=== PATIENT | female | born 1935 | race Caucasian/White ===

== ENCOUNTER → 2017-02-02 | Outpatient (CLI) | payer OTHER ==
[~2017-02-02] MED LIST: ASPI-231 PO; ATOR20TA PO; CLON0.2T PO; FLUO20CA19 PO; GEM600T OR; GLIM4TAB42 PO; HYDR12.56 PO; INSUINJ37 SC; LISI40TA PO; SITA100T7 PO
[2017-02-02 08:29] LABS: DEFINITIVE VIEW TRANSMISSION; Eosinophils # (auto) 0.4 uL; Lymphocytes # (auto) 4.5 uL; SUSPECT VIEW TRANSMISSION
[2017-02-02 08:43] LABS: Basophils # (auto) 0.1 uL; Basophils % (auto) 0.7 % (0.0-2.0); Eosinophils % (auto) 3.7 % (0.0-7.0); Hematocrit 39.4 % (36.0-46.0); Hemoglobin 13.7 g/dL (12.2-16.2); Lymphocytes % (auto) 38.8 % (10.0-50.0); Mean Corpuscular Hgb Conc. 34.8 g/dL (32.0-36.0); Mean Platelet Volume 10.5 fL (7.4-10.4); Monocytes % (auto) 8.6 % (0.0-12.0); Neutrophils # (auto) 5.6 uL; Neutrophils % (auto) 48.2 % (37.0-80.0); Platelet Count (auto) 213 10^3/uL (140-450); White Blood Cell 11.7 10^3/uL (4.4-10.8)
[2017-02-02 09:09] LABS: Albumin 3.3 g/dL (3.4-5.0); BUN/Creatinine Ratio 14.9; Bilirubin, Total 0.6 mg/dL (0.2-1.0); Calcium 9.1 mg/dL (8.5-10.1); Potassium 4.7 mmol/L (3.5-5.1); Total Protein 6.9 g/dL (6.4-8.2)
[2017-02-02 09:25] LABS: Platelet Estimate Adequate
[2017-02-02 09:26] LABS: RBC Morphology Normal
== END | disposition home or self-care (01) ==
LOC: LAB 08:08
PROVIDERS: ATTEND Internal Medicine
DX: Z00.00 Encounter for general adult medical examination without abnormal findings (principal)
CPT/HCPCS: 36415; 80053; 80061; 82043; 83036; 85025

== ENCOUNTER → 2017-05-09 | Outpatient (CLI) | payer OTHER ==
[2017-05-09 14:47] LABS: BUN/Creatinine Ratio 13.4; Calcium 9.1 mg/dL (8.5-10.1); Potassium 4.5 mmol/L (3.5-5.1)
[2017-05-09 17:39] LABS: Urine Bilirubin Negative (Negative); Urine Blood Negative /uL (Negative); Urine Color Yellow (Yellow); Urine Glucose Normal (Normal); Urine Hyaline Cast MANY /lpf (0 - 2); Urine Ketone Negative (Negative); Urine Mucus FEW (None Seen); Urine Nitrite Negative (Negative); Urine RBC 1 /hpf (0 - 4); Urine Squamous Epithelial Cell MOD /hpf (<5); Urine pH 5.5 (5.0-8.0)
== END | disposition home or self-care (01) ==
LOC: LAB 13:23
PROVIDERS: ATTEND Internal Medicine
DX: E11.9 Type 2 diabetes mellitus without complications (principal)
CPT/HCPCS: 36415; 80048; 81001; 83036

== ENCOUNTER → 2017-10-30 | Outpatient (CLI) | payer OTHER ==
[2017-10-30 08:44] LABS: Basophils # (auto) 0.1 uL; Basophils % (auto) 0.8 % (0.0-2.0); Eosinophils # (auto) 0.2 uL; Eosinophils % (auto) 2.8 % (0.0-7.0); Hematocrit 38.2 % (36.0-46.0); Hemoglobin 12.8 g/dL (12.2-16.2); Lymphocytes # (auto) 2.3 uL; Lymphocytes % (auto) 27.2 % (10.0-50.0); Mean Corpuscular Hemoglobin 30.7 pg (28.0-32.0); Mean Corpuscular Hgb Conc. 33.5 g/dL (32.0-36.0); Mean Corpuscular Volume 91.8 fL (80.0-100.0); Monocytes # (auto) 0.8 uL; Neutrophils # (auto) 4.9 uL; Neutrophils % (auto) 59.2 % (37.0-80.0); Platelet Count (auto) 229 10^3/uL (140-450); Red Blood Cells 4.16 10^6/uL (4.0-5.20); White Blood Cell 8.3 10^3/uL (4.4-10.8)
[2017-10-30 09:41] LABS: Albumin 3.6 g/dL (3.4-5.0); Calcium 8.7 mg/dL (8.5-10.1); Potassium 4.6 mmol/L (3.5-5.1)
[2017-10-30 09:51] LABS: BUN/Creatinine Ratio 13.3; Bilirubin, Total 0.9 mg/dL (0.2-1.0)
[2017-10-30 09:52] LABS: Total Protein 7.4 g/dL (6.4-8.2)
== END | disposition home or self-care (01) ==
LOC: LAB 08:16
PROVIDERS: ATTEND Internal Medicine
DX: Z00.01 Encounter for general adult medical examination with abnormal findings (principal); E11.22 Type 2 diabetes mellitus with diabetic chronic kidney disease; E78.5 Hyperlipidemia, unspecified
CPT/HCPCS: 36415; 80053; 80061; 82306; 83036; 84443; 85025

== ENCOUNTER → 2017-12-04 | Outpatient (CLI) | payer OTHER | END | disposition home or self-care (01) | LOC: LAB 13:41 | PROVIDERS: ATTEND Internal Medicine | DX: Z00.01 Encounter for general adult medical examination with abnormal findings (principal); E11.22 Type 2 diabetes mellitus with diabetic chronic kidney disease; N18.3 Chronic kidney disease, stage 3 (moderate); E78.5 Hyperlipidemia, unspecified | CPT/HCPCS: 82270 ==

== ENCOUNTER → 2018-07-25 | Outpatient (CLI) | payer OTHER ==
[2018-07-25 12:49] LABS: Albumin 3.5 g/dL (3.4-5.0); BUN/Creatinine Ratio 11.4; Calcium 9.4 mg/dL (8.5-10.1); Potassium 4.5 mmol/L (3.5-5.1)
[2018-07-25 12:52] LABS: Bilirubin, Total 0.7 mg/dL (0.2-1.0); Total Protein 6.9 g/dL (6.4-8.2)
== END | disposition home or self-care (01) ==
LOC: LAB 10:46
PROVIDERS: ATTEND Internal Medicine
DX: E11.22 Type 2 diabetes mellitus with diabetic chronic kidney disease (principal); N18.3 Chronic kidney disease, stage 3 (moderate); E11.37X9 Type 2 diabetes mellitus with diabetic macular edema, resolved following treatment, unspecified eye; E78.5 Hyperlipidemia, unspecified
CPT/HCPCS: 36415; 80053; 83036

== ENCOUNTER → 2018-10-15 | Outpatient (CLI) | payer OTHER ==
[2018-10-15 12:19] LABS: Albumin 3.5 g/dL (3.4-5.0); Calcium 9.3 mg/dL (8.5-10.1); Potassium 4.5 mmol/L (3.5-5.1)
[2018-10-15 12:24] LABS: BUN/Creatinine Ratio 10.9; Bilirubin, Total 0.8 mg/dL (0.2-1.0); Total Protein 6.8 g/dL (6.4-8.2)
== END | disposition home or self-care (01) ==
LOC: LAB 11:18
PROVIDERS: ATTEND Internal Medicine
DX: E11.22 Type 2 diabetes mellitus with diabetic chronic kidney disease (principal); E78.5 Hyperlipidemia, unspecified; N18.3 Chronic kidney disease, stage 3 (moderate)
CPT/HCPCS: 36415; 80053; 83036

== ENCOUNTER → 2019-01-22 | Outpatient (CLI) | payer OTHER ==
[2019-01-22 10:45] LABS: Albumin 3.3 g/dL (3.4-5.0); BUN/Creatinine Ratio 11.1; Calcium 8.7 mg/dL (8.5-10.1); Potassium 4.5 mmol/L (3.5-5.1)
[2019-01-22 10:48] LABS: Bilirubin, Total 0.5 mg/dL (0.2-1.0); Total Protein 6.6 g/dL (6.4-8.2)
== END | disposition home or self-care (01) ==
LOC: LAB 09:18
PROVIDERS: ATTEND Internal Medicine
DX: E78.5 Hyperlipidemia, unspecified (principal); E11.9 Type 2 diabetes mellitus without complications; I10 Essential (primary) hypertension
CPT/HCPCS: 36415; 80053; 83036

== ENCOUNTER → 2019-05-27 | Outpatient (CLI) | payer OTHER ==
[2019-05-27 11:17] LABS: Potassium 4.4 mmol/L (3.5-5.1)
[2019-05-27 11:24] LABS: Albumin 3.5 g/dL (3.4-5.0); BUN/Creatinine Ratio 19.4; Bilirubin, Total 0.7 mg/dL (0.2-1.0); Calcium 9.1 mg/dL (8.5-10.1); Total Protein 6.9 g/dL (6.4-8.2)
== END | disposition home or self-care (01) ==
LOC: LAB 09:31
PROVIDERS: ATTEND Internal Medicine
DX: E11.22 Type 2 diabetes mellitus with diabetic chronic kidney disease (principal); E78.5 Hyperlipidemia, unspecified; N18.3 Chronic kidney disease, stage 3 (moderate)
CPT/HCPCS: 36415; 80053; 80061; 83036; 86803

== ENCOUNTER → 2019-09-12 | Outpatient (CLI) | payer OTHER ==
[2019-09-12 10:57] LABS: Basophils # (auto) 0.1 uL; Basophils % (auto) 1.4 % (0.0-2.0); Eosinophils # (auto) 0.2 uL; Eosinophils % (auto) 2.8 % (0.0-7.0); Hematocrit 35.4 % (36.0-46.0); Hemoglobin 11.8 g/dL (12.2-16.2); Lymphocytes # (auto) 1.4 uL; Lymphocytes % (auto) 24.2 % (10.0-50.0); Mean Corpuscular Hemoglobin 31.6 pg (28.0-32.0); Mean Corpuscular Hgb Conc. 33.3 g/dL (32.0-36.0); Mean Corpuscular Volume 95.1 fL (80.0-100.0); Monocytes # (auto) 0.6 uL; Monocytes % (auto) 10.2 % (0.0-12.0); Neutrophils # (auto) 3.5 uL; Neutrophils % (auto) 61.4 % (37.0-80.0); Platelet Count (auto) 195 10^3/uL (140-450); Red Blood Cells 3.72 10^6/uL (4.0-5.20); Red Cell Distribution Width 13.8 % (11.8-14.3); White Blood Cell 5.6 10^3/uL (4.4-10.8)
[2019-09-12 11:22] LABS: Albumin 3.2 g/dL (3.4-5.0); Calcium 9.3 mg/dL (8.5-10.1); Potassium 4.3 mmol/L (3.5-5.1)
[2019-09-12 11:27] LABS: BUN/Creatinine Ratio 17.6; Bilirubin, Total 0.6 mg/dL (0.2-1.0); Total Protein 6.7 g/dL (6.4-8.2)
== END | disposition home or self-care (01) ==
LOC: LAB 10:29
PROVIDERS: ATTEND Internal Medicine
DX: Z12.11 Encounter for screening for malignant neoplasm of colon (principal); E78.5 Hyperlipidemia, unspecified; E11.22 Type 2 diabetes mellitus with diabetic chronic kidney disease; I12.9 Hypertensive chronic kidney disease with stage 1 through stage 4 chronic kidney disease, or unspecified chronic kidney disease; N18.3 Chronic kidney disease, stage 3 (moderate)
CPT/HCPCS: 36415; 80053; 80061; 82306; 83036; 84443; 85025

== ENCOUNTER → 2020-01-30 | Outpatient (CLI) | payer OTHER ==
[2020-01-30 11:53] LABS: Albumin 3.2 g/dL (3.4-5.0); Calcium 8.8 mg/dL (8.5-10.1); Potassium 4.3 mmol/L (3.5-5.1)
[2020-01-30 12:01] LABS: Bilirubin, Total 0.9 mg/dL (0.2-1.0)
== END | disposition home or self-care (01) ==
LOC: LAB 10:57
PROVIDERS: ATTEND Internal Medicine
DX: E11.22 Type 2 diabetes mellitus with diabetic chronic kidney disease (principal); N18.9 Chronic kidney disease, unspecified; E78.5 Hyperlipidemia, unspecified
CPT/HCPCS: 36415; 80053; 80061; 83036

== ENCOUNTER 2020-10-26 17:34 | Inpatient (IN) | payer OTHER ==
[~2020-10-26] VITALS: Ht 162.6 cm; Wt 69.1 kg
[~2020-10-26 17:34] MED LIST changes: -LISI40TA PO; +LISI40TA11 PO
[2020-10-26] MEDS ORDERED: DOCUSATE SOD 100 MG CAP PO PRN (18:30)
[2020-10-26] MEDS ORDERED: DEXTROSE (50%) 50ML SYRG IV PRN (18:30)
[2020-10-26] MEDS ORDERED: MORPHINE SULF INJ 2 MG/ML SYRINGE 1ML IV PRN (18:30)
[2020-10-26] MEDS ORDERED: ONDANSETRON HCL 4 MG/2 ML VIAL IV PRN (18:30)
[2020-10-26] MEDS ORDERED: HYDROcodone-ACET 5/325MG TAB PO PRN (18:30)
[2020-10-26] MEDS ORDERED: ACETAMINOPHEN 500 MG TAB PO PRN (18:30)
[2020-10-26] MEDS ORDERED: NITROGLYCERIN 0.4 MG SL TAB SL PRN (18:30)
[2020-10-26 19:04] VITALS: BP 147/58
[2020-10-26 21:00] VITALS: BP 147/58
[2020-10-26 22:00] VITALS: BP 147/60
[2020-10-26] MEDS: InsuLIN REG 1unit/0.01ml Soln (100units/ml) SC SCH (22:02)
[2020-10-26] MEDS: ACCU-CHEK COMFORT CURVE STRIP VI SCH (22:02)
[2020-10-27] VITALS (8 sets, daily range): BP systolic 143–160; BP diastolic 46–67
[2020-10-27] MEDS: MORPHINE SULF INJ 2 MG/ML SYRINGE 1ML IV PRN ×2 (05:16→22:04)
[2020-10-27 06:42] LABS: Basophils # (auto) 0 10 ^3/uL (0-0.2); Basophils % (auto) 0.3 % (0.0-2.0); Eosinophils # (auto) 0.1 10 ^3/uL (0-0.8); Eosinophils % (auto) 0.9 % (0.0-7.0); Hematocrit 33.2 % (36.0-46.0); Hemoglobin 11.4 g/dL (12.2-16.2); Lymphocytes # (auto) 1.2 10 ^3/uL (0.4-5.4); Lymphocytes % (auto) 11.2 % (10.0-50.0); Mean Corpuscular Hgb Conc. 34.4 g/dL (32.0-36.0); Monocytes # (auto) 0.9 10 ^3/uL (0-1.3); Monocytes % (auto) 8.3 % (0.0-12.0); Neutrophils # (auto) 8.8 10 ^3/uL (1.6-8.6); Neutrophils % (auto) 79.3 % (37.0-80.0); Nucleated Red Blood Cells % 0.1 %; Platelet Count (auto) 159 10^3/uL (140-450); Red Blood Cells 3.58 10^6/uL (4.0-5.20); Red Cell Distribution Width 13.1 % (11.8-14.3); White Blood Cell 11.1 10^3/uL (4.4-10.8)
[2020-10-27] MEDS: ACCU-CHEK COMFORT CURVE STRIP VI SCH ×4 (06:44→22:04)
[2020-10-27] MEDS: InsuLIN REG 1unit/0.01ml Soln (100units/ml) SC SCH ×4 (06:47→22:05)
[2020-10-27 07:01] LABS: Potassium 4.4 mmol/L (3.5-5.1)
[2020-10-27 07:09] LABS: Albumin 2.5 g/dL (3.4-5.0); BUN/Creatinine Ratio 17.2; Bilirubin, Total 1.4 mg/dL (0.2-1.0); Calcium 8.7 mg/dL (8.5-10.1); Total Protein 6.3 g/dL (6.4-8.2)
[2020-10-27 08:27] LABS: Urine Bacteria FEW /hpf (None Seen); Urine Blood 2+ /uL (Negative); Urine Hyaline Cast FEW /lpf (0 - 2); Urine Specific Gravity 1.024 (1.001-1.035); Urine WBC 8 /hpf (0 - 5)
[2020-10-27 08:42] LABS: Cholesterol 147 mg/dL (< 200); HDL Cholesterol 59 mg/dL (40-59); LDL Cholesterol 71 mg/dL (< 100); Triglycerides 175 mg/dL (< 150)
[2020-10-27 09:17] LABS: INR 0.99 (0.9-1.15)
[2020-10-27] MEDS ORDERED: FAMOTIDINE 20 MG TAB PO SCH (10:00)
[2020-10-27] MEDS ORDERED: VANCOMYCIN HCL 1000 MG VL ONE (11:52)
[2020-10-27] MEDS ORDERED: CLINDAMYCIN 600MG IV 50 ML IV ONE (12:09)
[2020-10-27] MEDS ORDERED: MIDAZOLAM HCL 1MG/1ML-2 ML VIAL ONE (12:46)
[2020-10-27] MEDS ORDERED: fentaNYL CITRATE 100 MCG/2 ML VL ONE (12:46)
[2020-10-27] MEDS ORDERED: MEPERIDINE HCL (25 MG/ML) 1ML VIAL ONE (12:46)
[2020-10-27] MEDS ORDERED: DexAMETHasone SOD PHOS 10MG/1ML VIAL INJ ONE (13:18)
[2020-10-27] MEDS ORDERED: PROPOFOL 10 MG/ML 20 ML IV ONE (13:21)
[2020-10-27] MEDS ORDERED: EPINEPHrine HCL 1 MG/1 ML AMP ONE (13:29)
[2020-10-27] MEDS ORDERED: MORPHINE SULF INJ 2 MG/ML SYRINGE 1ML IV PRN (13:45)
[2020-10-27] MEDS ORDERED: ONDANSETRON HCL 4 MG/2 ML VIAL IV PRN (13:45)
[2020-10-27] MEDS ORDERED: ePHEDrine SULFATE 50 MG/ML AMP IV PRN (13:45)
[2020-10-27] MEDS ORDERED: ACCU-CHEK COMFORT CURVE STRIP VI ONE (13:45)
[2020-10-27] MEDS ORDERED: LABETALOL HCL 5 MG/ML 4ML SYRINGE IV PRN (13:45)
[2020-10-27] MEDS ORDERED: MIDAZOLAM HCL 1MG/1ML-2 ML VIAL IV PRN (13:45)
[2020-10-27] MEDS ORDERED: HYDROmorphone HCL 2 MG/ML VL IV PRN (13:45)
[2020-10-27] MEDS ORDERED: PHENYLEPHRINE HCL 10 MG/ML VL ONE (14:06)
[2020-10-27] MEDS: LACTATED RINGER'S 1,000 ML IV SCH (14:45)
[2020-10-27] MEDS: CLINDAMYCIN 600MG IV 50 ML IV SCH (17:12)
[2020-10-27] MEDS: KETOROLAC TROMETH 30 MG/ML 1ML VIAL IV SCH (17:13)
[2020-10-28] MEDS: KETOROLAC TROMETH 30 MG/ML 1ML VIAL IV SCH ×5 (00:03→23:48)
[2020-10-28] MEDS: CLINDAMYCIN 600MG IV 50 ML IV SCH ×2 (00:03→05:53)
[2020-10-28] MEDS: LACTATED RINGER'S 1,000 ML IV SCH (01:00)
[2020-10-28 04:45] VITALS: BP 153/63
[2020-10-28 05:57] LABS: Basophils # (auto) 0 10 ^3/uL (0-0.2); Basophils % (auto) 0.3 % (0.0-2.0); Eosinophils # (auto) 0 10 ^3/uL (0-0.8); Hemoglobin 10.4 g/dL (12.2-16.2); Lymphocytes # (auto) 0.7 10 ^3/uL (0.4-5.4); Lymphocytes % (auto) 6.2 % (10.0-50.0); Mean Corpuscular Hemoglobin 31.7 pg (28.0-32.0); Mean Corpuscular Hgb Conc. 33.7 g/dL (32.0-36.0); Monocytes % (auto) 8.1 % (0.0-12.0); Neutrophils # (auto) 10.2 10 ^3/uL (1.6-8.6); Neutrophils % (auto) 85.4 % (37.0-80.0); Platelet Count (auto) 154 10^3/uL (140-450); Red Cell Distribution Width 13.1 % (11.8-14.3)
[2020-10-28 06:25] LABS: BUN/Creatinine Ratio 23.7; Calcium 8.1 mg/dL (8.5-10.1); Potassium 4.7 mmol/L (3.5-5.1)
[2020-10-28] MEDS: InsuLIN REG 1unit/0.01ml Soln (100units/ml) SC SCH ×4 (06:28→21:28)
[2020-10-28] MEDS: ACCU-CHEK COMFORT CURVE STRIP VI SCH ×4 (06:28→21:25)
[2020-10-28 08:00] VITALS: BP 148/70
[2020-10-28] MEDS: FAMOTIDINE 20 MG TAB PO SCH (10:29)
[2020-10-28] MEDS: ENOXAPARIN SOD 30 MG/0.3 ML SYRINGE SC SCH (10:30)
[2020-10-28] MEDS ORDERED: SODIUM CHLORIDE 0.9% 1,000 ML IV ONE (11:00)
[2020-10-28] MEDS ORDERED: hydrALAZINE HCL 20 MG/ML VL IV SCH ×2 (11:45→12:00)
[2020-10-28 12:00] VITALS: BP 161/71
[2020-10-28] MEDS: hydrALAZINE HCL 20 MG/ML VL IV PRN (12:03)
[2020-10-28] MEDS ORDERED: FLUoxetine HCL 20 MG CAP PO ONE (13:45)
[2020-10-28] MEDS ORDERED: GEMFIBROZIL 600 MG TAB PO ONE (13:45)
[2020-10-28] MEDS ORDERED: LISINOPRIL 20 MG TAB PO ONE (13:45)
[2020-10-28] MEDS ORDERED: ASPirin 81 mg TAB PO ONE (13:45)
[2020-10-28] MEDS ORDERED: HCTZ 25 MG TAB PO ONE (13:45)
[2020-10-28 16:00] VITALS: BP 150/78
[2020-10-28] MEDS: ATORVASTATIN 20 MG TAB PO SCH (21:28)
[2020-10-28 22:00] VITALS: BP 166/73
[2020-10-29 05:00] VITALS: BP 167/81
[2020-10-29] MEDS: hydrALAZINE HCL 20 MG/ML VL IV PRN ×2 (06:00→18:29)
[2020-10-29] MEDS: KETOROLAC TROMETH 30 MG/ML 1ML VIAL IV SCH ×4 (06:08→23:56)
[2020-10-29 06:14] LABS: Hematocrit 30.5 % (36.0-46.0); Hemoglobin 10.5 g/dL (12.2-16.2)
[2020-10-29] MEDS: ACCU-CHEK COMFORT CURVE STRIP VI SCH ×4 (06:25→22:14)
[2020-10-29] MEDS: InsuLIN REG 1unit/0.01ml Soln (100units/ml) SC SCH ×4 (06:25→22:23)
[2020-10-29 06:31] LABS: Calcium 7.8 mg/dL (8.5-10.1); Potassium 4.2 mmol/L (3.5-5.1)
[2020-10-29 06:38] LABS: BUN/Creatinine Ratio 29.8
[2020-10-29] MEDS: GEMFIBROZIL 600 MG TAB PO SCH (08:28)
[2020-10-29] MEDS: ASPirin 81 mg TAB PO SCH (08:29)
[2020-10-29] MEDS: HCTZ 25 MG TAB PO SCH (08:31)
[2020-10-29] MEDS: FLUoxetine HCL 20 MG CAP PO SCH (08:32)
[2020-10-29] MEDS: LISINOPRIL 20 MG TAB PO SCH (08:36)
[2020-10-29] MEDS: ENOXAPARIN SOD 30 MG/0.3 ML SYRINGE SC SCH (08:39)
[2020-10-29 09:00] VITALS: BP 165/67
[2020-10-29] MEDS: MORPHINE SULF INJ 2 MG/ML SYRINGE 1ML IV PRN (10:08)
[2020-10-29 13:00] VITALS: BP 163/66
[2020-10-29 16:28] VITALS: BP 163/75
[2020-10-29 22:00] VITALS: BP 157/82
[2020-10-29] MEDS: ATORVASTATIN 20 MG TAB PO SCH (22:14)
[2020-10-30 05:00] VITALS: BP 167/76
[2020-10-30] MEDS: hydrALAZINE HCL 20 MG/ML VL IV PRN (05:35)
[2020-10-30] MEDS: KETOROLAC TROMETH 30 MG/ML 1ML VIAL IV SCH ×2 (05:41→11:50)
[2020-10-30] MEDS: ACCU-CHEK COMFORT CURVE STRIP VI SCH ×2 (06:26→11:48)
[2020-10-30] MEDS: InsuLIN REG 1unit/0.01ml Soln (100units/ml) SC SCH ×2 (06:28→11:48)
[2020-10-30 06:51] LABS: Hematocrit 32.8 % (36.0-46.0)
[2020-10-30 07:12] LABS: BUN/Creatinine Ratio 31.8; Calcium 8.6 mg/dL (8.5-10.1)
[2020-10-30 09:00] VITALS: BP 161/84
[2020-10-30] MEDS: FAMOTIDINE 20 MG TAB PO SCH (09:42)
[2020-10-30] MEDS: GEMFIBROZIL 600 MG TAB PO SCH (09:42)
[2020-10-30] MEDS: LISINOPRIL 20 MG TAB PO SCH (09:42)
[2020-10-30] MEDS: FLUoxetine HCL 20 MG CAP PO SCH (09:42)
[2020-10-30] MEDS: HCTZ 25 MG TAB PO SCH (09:43)
[2020-10-30] MEDS: ASPirin 81 mg TAB PO SCH (09:43)
[2020-10-30] MEDS: ENOXAPARIN SOD 30 MG/0.3 ML SYRINGE SC SCH (09:43)
[2020-10-30] MEDS ORDERED: CHOLECALCIFEROL (VITD3) 2,000 UNIT CAP/TAB PO SCH (10:00)
[2020-10-30 13:00] VITALS: BP 114/60
[2020-10-30 13:08] VITALS: BP 114/60
== END 2020-10-30 15:13 | disposition home health service (06) | DRG 521 ==
LOC: TELE-CENTR 17:34
PROVIDERS: ADMIT Internal Medicine; ATTEND Internal Medicine
PROC: 0SRS0J9 Replacement of Left Hip Joint, Femoral Surface with Synthetic Substitute, Cemented, Open Approach (ICD-10-PCS; principal; 2020-10-27 12:50)
DX: S72.092A Other fracture of head and neck of left femur, initial encounter for closed fracture (principal); N17.0 Acute kidney failure with tubular necrosis; E78.5 Hyperlipidemia, unspecified; I10 Essential (primary) hypertension; R01.1 Cardiac murmur, unspecified; Z20.822 Contact with and (suspected) exposure to COVID-19; E11.51 Type 2 diabetes mellitus with diabetic peripheral angiopathy without gangrene; E55.9 Vitamin D deficiency, unspecified; W01.0XXA Fall on same level from slipping, tripping and stumbling without subsequent striking against object, initial encounter; Z79.4 Long term (current) use of insulin; Z79.899 Other long term (current) drug therapy; Z87.891 Personal history of nicotine dependence; Y93.89 Activity, other specified; Y92.89 Other specified places as the place of occurrence of the external cause; Y99.8 Other external cause status
CPT/HCPCS: 36415; 71045; 72170; 80048; 80053; 80061; 81001; 82043; 82306; 82962; 83036; 84443; 85014; 85018; 85025; 85610; 85730; 86850; 86900; 86901; 87426; 93306; 97110; 97116; 97530; A4565; G0378; J0171; J1100; J1815; J1885; J2250; J2704; J3490

== ENCOUNTER 2020-10-31 16:20 | Inpatient (IN) | payer OTHER ==
[~2020-10-31] VITALS: Ht 162.6 cm; Wt 70.0 kg
[2020-10-31 17:21] LABS: Basophils # (auto) 0.1 10 ^3/uL (0-0.2); Basophils % (auto) 0.5 % (0.0-2.0); Eosinophils # (auto) 0.3 10 ^3/uL (0-0.8); Eosinophils % (auto) 3.1 % (0.0-7.0); Hematocrit 31.3 % (36.0-46.0); Hemoglobin 10.7 g/dL (12.2-16.2); Lymphocytes # (auto) 1.1 10 ^3/uL (0.4-5.4); Lymphocytes % (auto) 10.6 % (10.0-50.0); Mean Corpuscular Hemoglobin 31.7 pg (28.0-32.0); Mean Corpuscular Hgb Conc. 34.1 g/dL (32.0-36.0); Mean Corpuscular Volume 93.2 fL (80.0-100.0); Monocytes # (auto) 1.2 10 ^3/uL (0-1.3); Monocytes % (auto) 11.5 % (0.0-12.0); Neutrophils # (auto) 7.5 10 ^3/uL (1.6-8.6); Neutrophils % (auto) 74.3 % (37.0-80.0); Platelet Count (auto) 235 10^3/uL (140-450); Red Blood Cells 3.36 10^6/uL (4.0-5.20); Red Cell Distribution Width 13.4 % (11.8-14.3); White Blood Cell 10.1 10^3/uL (4.4-10.8)
[2020-10-31 17:33] LABS: BUN/Creatinine Ratio 23.6; Calcium 8.8 mg/dL (8.5-10.1); Potassium 4.1 mmol/L (3.5-5.1)
[2020-10-31 17:38] LABS: Bilirubin, Total 0.9 mg/dL (0.2-1.0); Total Protein 6.2 g/dL (6.4-8.2)
[2020-10-31 17:50] LABS: INR 0.97 (0.9-1.15); Partial Thromboplastin Time 26.8 sec (23.0-31.2)
[2020-10-31] MEDS ORDERED: SODIUM CHLORIDE 0.9% 1,000 ML IV ONE (18:45)
[2020-10-31] MEDS ORDERED: CIPROFLOXACIN 400MG/200ML 200 ML IV ONE (18:45)
[2020-10-31] MEDS ORDERED: metroNIDAZOLE 500MG/100ML 100 ML IV ONE (18:45)
[2020-10-31] MEDS ORDERED: DOCUSATE SOD 100 MG CAP PO PRN (22:30)
[2020-10-31] MEDS ORDERED: DEXTROSE (50%) 50ML SYRG IV PRN (22:30)
[2020-10-31] MEDS ORDERED: ACETAMINOPHEN 325 MG TAB PO PRN (22:30)
[2020-10-31] MEDS ORDERED: NITROGLYCERIN 0.4 MG SL TAB SL PRN (22:30)
[2020-10-31] MEDS ORDERED: ONDANSETRON HCL 4 MG/2 ML VIAL IV PRN (22:30)
[2020-10-31] MEDS ORDERED: MORPHINE SULF INJ 2 MG/ML SYRINGE 1ML IV PRN (22:30)
[2020-10-31] MEDS: SODIUM CHLORIDE 0.9% 1,000 ML IV SCH (22:45)
[2020-10-31] MEDS: HYDROcodone-ACET 5/325MG TAB PO PRN (23:38)
[2020-11-01 05:00] LABS: Basophils # (auto) 0.1 10 ^3/uL (0-0.2); Basophils % (auto) 0.7 % (0.0-2.0); Eosinophils # (auto) 0.3 10 ^3/uL (0-0.8); Eosinophils % (auto) 3.5 % (0.0-7.0); Hematocrit 28.2 % (36.0-46.0); Hemoglobin 9.6 g/dL (12.2-16.2); Lymphocytes # (auto) 1.3 10 ^3/uL (0.4-5.4); Lymphocytes % (auto) 14.6 % (10.0-50.0); Mean Corpuscular Hemoglobin 31.6 pg (28.0-32.0); Mean Corpuscular Volume 92.8 fL (80.0-100.0); Monocytes # (auto) 1.1 10 ^3/uL (0-1.3); Monocytes % (auto) 11.6 % (0.0-12.0); Neutrophils # (auto) 6.4 10 ^3/uL (1.6-8.6); Neutrophils % (auto) 69.6 % (37.0-80.0); Platelet Count (auto) 212 10^3/uL (140-450); Red Blood Cells 3.04 10^6/uL (4.0-5.20); Red Cell Distribution Width 13.5 % (11.8-14.3); White Blood Cell 9.2 10^3/uL (4.4-10.8)
[2020-11-01 05:15] LABS: Albumin 1.8 g/dL (3.4-5.0); Calcium 8.1 mg/dL (8.5-10.1); Potassium 3.9 mmol/L (3.5-5.1)
[2020-11-01 05:22] LABS: BUN/Creatinine Ratio 26.2; Bilirubin, Total 0.7 mg/dL (0.2-1.0); Total Protein 5.6 g/dL (6.4-8.2)
[2020-11-01 06:00] VITALS: BP 153/66
[2020-11-01] MEDS ORDERED: metroNIDAZOLE 500MG/100ML 100 ML IV SCH (06:00)
[2020-11-01] MEDS: ACCU-CHEK COMFORT CURVE STRIP VI SCH ×4 (06:58→21:52)
[2020-11-01] MEDS: InsuLIN REG 1unit/0.01ml Soln (100units/ml) SC SCH ×4 (07:11→21:52)
[2020-11-01] MEDS: SODIUM CHLORIDE 0.9% 1,000 ML IV SCH (07:56)
[2020-11-01 09:02] VITALS: BP 153/66
[2020-11-01] MEDS ORDERED: HEPARIN SODIUM (PORCINE) 5000 UNITS/ML 1ML VIAL SC SCH (10:00)
[2020-11-01] MEDS ORDERED: FAMOTIDINE 20 MG TAB PO SCH (10:00)
[2020-11-01] MEDS ORDERED: POLYETHYLENE GLYCOL 17 GM PWDR PO ONE ×2 (10:30)
[2020-11-01] MEDS ORDERED: ENOXAPARIN SOD 40 MG/0.4 ML SYRINGE SC SCH (10:30)
[2020-11-01] MEDS: DOCUSATE SOD 100 MG CAP PO SCH ×2 (10:40→21:14)
[2020-11-01] MEDS: MULTIPLE VITAMIN TAB PO SCH (10:40)
[2020-11-01] MEDS: FLUoxetine HCL 20 MG CAP PO SCH (10:40)
[2020-11-01] MEDS: ZINC SULFATE 220mg CAP or TAB PO SCH (10:40)
[2020-11-01] MEDS: ASCORBIC ACID 500 MG TAB PO SCH ×2 (10:41→21:14)
[2020-11-01] MEDS ORDERED: PANTOPRAZOLE 40 MG TAB PO ONE (12:30)
[2020-11-01] MEDS ORDERED: ENOXAPARIN SOD 60 MG/0.6 ML SYRINGE SC ONE (12:30)
[2020-11-01] MEDS ORDERED: BISACODYL 5 MG EC TAB PO ONE (12:30)
[2020-11-01 13:07] VITALS: BP 174/61
[2020-11-01] MEDS: hydrALAZINE HCL 20 MG/ML VL IV PRN (13:29)
[2020-11-01] MEDS: HYDROcodone-ACET 5/325MG TAB PO PRN ×2 (14:22→21:54)
[2020-11-01 17:15] VITALS: BP 109/58
[2020-11-01 22:00] VITALS: BP 148/60
[2020-11-01] MEDS ORDERED: ENOXAPARIN SOD 60 MG/0.6 ML SYRINGE SC SCH (22:00)
[2020-11-02 05:00] VITALS: BP 136/62
[2020-11-02 05:52] VITALS: BP 136/62
[2020-11-02 06:42] LABS: Basophils # (auto) 0.1 10 ^3/uL (0-0.2); Basophils % (auto) 0.8 % (0.0-2.0); Eosinophils # (auto) 0.3 10 ^3/uL (0-0.8); Eosinophils % (auto) 3.9 % (0.0-7.0); Hematocrit 31.3 % (36.0-46.0); Hemoglobin 10.4 g/dL (12.2-16.2); Lymphocytes # (auto) 1.8 10 ^3/uL (0.4-5.4); Lymphocytes % (auto) 22.5 % (10.0-50.0); Mean Corpuscular Hemoglobin 31.8 pg (28.0-32.0); Mean Corpuscular Hgb Conc. 33.3 g/dL (32.0-36.0); Mean Corpuscular Volume 95.6 fL (80.0-100.0); Monocytes # (auto) 1.1 10 ^3/uL (0-1.3); Monocytes % (auto) 13.7 % (0.0-12.0); Neutrophils # (auto) 4.6 10 ^3/uL (1.6-8.6); Neutrophils % (auto) 59.1 % (37.0-80.0); Platelet Count (auto) 270 10^3/uL (140-450); Red Blood Cells 3.28 10^6/uL (4.0-5.20); Red Cell Distribution Width 13.5 % (11.8-14.3); White Blood Cell 7.9 10^3/uL (4.4-10.8)
[2020-11-02 07:01] LABS: Calcium 8.1 mg/dL (8.5-10.1); Potassium 4.3 mmol/L (3.5-5.1)
[2020-11-02 07:04] LABS: BUN/Creatinine Ratio 22.5
[2020-11-02] MEDS: ACCU-CHEK COMFORT CURVE STRIP VI SCH ×4 (07:06→20:33)
[2020-11-02] MEDS: HYDROcodone-ACET 5/325MG TAB PO PRN ×3 (07:13→15:57)
[2020-11-02] MEDS: InsuLIN REG 1unit/0.01ml Soln (100units/ml) SC SCH ×4 (07:15→20:42)
[2020-11-02 09:00] VITALS: BP 124/68
[2020-11-02] MEDS: ZINC SULFATE 220mg CAP or TAB PO SCH (09:36)
[2020-11-02] MEDS: DOCUSATE SOD 100 MG CAP PO SCH ×2 (09:36→20:32)
[2020-11-02] MEDS: MULTIPLE VITAMIN TAB PO SCH (09:37)
[2020-11-02] MEDS: POLYETHYLENE GLYCOL 17 GM PWDR PO SCH (09:37)
[2020-11-02] MEDS: PANTOPRAZOLE 40 MG TAB PO SCH (09:37)
[2020-11-02] MEDS: ASCORBIC ACID 500 MG TAB PO SCH ×2 (09:37→20:32)
[2020-11-02] MEDS: FLUoxetine HCL 20 MG CAP PO SCH (09:37)
[2020-11-02] MEDS: ENOXAPARIN SOD 60 MG/0.6 ML SYRINGE SC SCH (09:38)
[2020-11-02] MEDS: hydrALAZINE HCL 20 MG/ML VL IV PRN (12:03)
[2020-11-02 12:51] VITALS: BP 190/80
[2020-11-02 17:00] VITALS: BP 142/48
[2020-11-02] MEDS: ATORVASTATIN 20 MG TAB PO SCH (20:32)
[2020-11-02] MEDS: traMADol HCL 50 MG TAB PO PRN (20:33)
[2020-11-02 22:25] VITALS: BP 140/54
[2020-11-03 04:32] VITALS: BP 162/66
[2020-11-03] MEDS: hydrALAZINE HCL 20 MG/ML VL IV PRN (06:18)
[2020-11-03] MEDS: traMADol HCL 50 MG TAB PO PRN ×2 (06:18→16:15)
[2020-11-03] MEDS: ACCU-CHEK COMFORT CURVE STRIP VI SCH ×4 (07:18→21:55)
[2020-11-03] MEDS: InsuLIN REG 1unit/0.01ml Soln (100units/ml) SC SCH ×4 (07:18→21:57)
[2020-11-03 09:00] VITALS: BP 147/54
[2020-11-03] MEDS: POLYETHYLENE GLYCOL 17 GM PWDR PO SCH (09:35)
[2020-11-03] MEDS: ZINC SULFATE 220mg CAP or TAB PO SCH (09:36)
[2020-11-03] MEDS: DOCUSATE SOD 100 MG CAP PO SCH ×2 (09:36→21:15)
[2020-11-03] MEDS: ENOXAPARIN SOD 60 MG/0.6 ML SYRINGE SC SCH (09:37)
[2020-11-03] MEDS: ASCORBIC ACID 500 MG TAB PO SCH ×2 (09:37→21:16)
[2020-11-03] MEDS: HYDROcodone-ACET 5/325MG TAB PO PRN ×2 (09:37→21:18)
[2020-11-03] MEDS: FLUoxetine HCL 20 MG CAP PO SCH (09:37)
[2020-11-03] MEDS: MULTIPLE VITAMIN TAB PO SCH (09:37)
[2020-11-03] MEDS: PANTOPRAZOLE 40 MG TAB PO SCH (09:37)
[2020-11-03 13:00] VITALS: BP 134/56
[2020-11-03 16:31] VITALS: BP 160/93
[2020-11-03] MEDS: ATORVASTATIN 20 MG TAB PO SCH (21:15)
[2020-11-03 22:00] VITALS: BP 157/61
[2020-11-04 05:00] VITALS: BP 163/69
[2020-11-04] MEDS: ACCU-CHEK COMFORT CURVE STRIP VI SCH ×3 (06:33→17:00)
[2020-11-04] MEDS: InsuLIN REG 1unit/0.01ml Soln (100units/ml) SC SCH ×3 (06:35→17:00)
[2020-11-04] MEDS: HYDROcodone-ACET 5/325MG TAB PO PRN ×2 (06:54→12:05)
[2020-11-04 08:47] VITALS: BP 155/82
[2020-11-04] MEDS: POLYETHYLENE GLYCOL 17 GM PWDR PO SCH (10:00)
[2020-11-04] MEDS: MULTIPLE VITAMIN TAB PO SCH (10:10)
[2020-11-04] MEDS: DOCUSATE SOD 100 MG CAP PO SCH (10:10)
[2020-11-04] MEDS: ZINC SULFATE 220mg CAP or TAB PO SCH (10:10)
[2020-11-04] MEDS: ENOXAPARIN SOD 60 MG/0.6 ML SYRINGE SC SCH (10:11)
[2020-11-04] MEDS: PANTOPRAZOLE 40 MG TAB PO SCH (10:11)
[2020-11-04] MEDS: ASCORBIC ACID 500 MG TAB PO SCH (10:11)
[2020-11-04] MEDS: FLUoxetine HCL 20 MG CAP PO SCH (10:11)
[2020-11-04] MEDS: hydrALAZINE HCL 20 MG/ML VL IV PRN (11:46)
[2020-11-04 13:00] VITALS: BP 174/64
== END 2020-11-04 17:26 | DRG 280 ==
LOC: ER 16:20 → EDBD 16:20 → TELE 22:32 → TELE-WESTW 11-01 05:32
PROVIDERS: ADMIT Nurse Practitioner Family; ATTEND Internal Medicine
DX: I82.412 Acute embolism and thrombosis of left femoral vein (principal); I21.A1 Myocardial infarction type 2; I26.99 Other pulmonary embolism without acute cor pulmonale; K56.7 Ileus, unspecified; I13.0 Hypertensive heart and chronic kidney disease with heart failure and stage 1 through stage 4 chronic kidney disease, or unspecified chronic kidney disease; K29.80 Duodenitis without bleeding; K59.00 Constipation, unspecified; N18.2 Chronic kidney disease, stage 2 (mild); I70.0 Atherosclerosis of aorta; Z20.822 Contact with and (suspected) exposure to COVID-19; Z88.0 Allergy status to penicillin; E11.22 Type 2 diabetes mellitus with diabetic chronic kidney disease; E11.51 Type 2 diabetes mellitus with diabetic peripheral angiopathy without gangrene; E78.5 Hyperlipidemia, unspecified; I50.9 Heart failure, unspecified; Z79.4 Long term (current) use of insulin; Z82.3 Family history of stroke; Z96.642 Presence of left artificial hip joint; F32.9 Major depressive disorder, single episode, unspecified; K21.9 Gastro-esophageal reflux disease without esophagitis; F41.9 Anxiety disorder, unspecified
CPT/HCPCS: 36415; 74176; 78582; 80048; 80053; 80061; 82962; 83735; 83880; 84443; 84484; 85025; 85379; 85610; 85730; 87081; 87426; 93005; 93970; 96365; 96368; 97163; G0378; J1815; J3490

== ENCOUNTER 2020-12-09 15:06 | Inpatient (IN) | payer OTHER ==
[~2020-12-09] VITALS: Ht 162.6 cm; Wt 61.2 kg
[~2020-12-09 15:06] MED LIST changes: -ASPI-231 PO; +ASPI1TAB20 PO
[2020-12-09 16:11] LABS: Basophils # (auto) 0 10 ^3/uL (0-0.2); Basophils % (auto) 0.3 % (0.0-2.0); Eosinophils # (auto) 0.3 10 ^3/uL (0-0.8); Eosinophils % (auto) 3.1 % (0.0-7.0); Hemoglobin 11.2 g/dL (12.2-16.2); Lymphocytes # (auto) 1.4 10 ^3/uL (0.4-5.4); Lymphocytes % (auto) 16.5 % (10.0-50.0); Mean Corpuscular Hemoglobin 30.1 pg (28.0-32.0); Mean Corpuscular Hgb Conc. 33.8 g/dL (32.0-36.0); Mean Corpuscular Volume 89.1 fL (80.0-100.0); Monocytes # (auto) 0.7 10 ^3/uL (0-1.3); Neutrophils # (auto) 6.2 10 ^3/uL (1.6-8.6); Neutrophils % (auto) 72.1 % (37.0-80.0); Nucleated Red Blood Cells % 0.2 %; Red Blood Cells 3.71 10^6/uL (4.0-5.20); Red Cell Distribution Width 14.6 % (11.8-14.3); White Blood Cell 8.6 10^3/uL (4.4-10.8)
[2020-12-09 16:23] LABS: Calcium 8.2 mg/dL (8.5-10.1)
[2020-12-09 16:26] LABS: Lactic Acid w/Reflex 2.3 mmol/L (0.4-2.0)
[2020-12-09 16:27] LABS: BUN/Creatinine Ratio 11.9; Bilirubin, Total 0.6 mg/dL (0.2-1.0); Total Protein 6.2 g/dL (6.4-8.2)
[2020-12-09 16:39] LABS: Potassium 2.5 mmol/L (3.5-5.1)
[2020-12-09] MEDS ORDERED: POTASSIUM CHL 20 Meq TABLET PO ONE (16:45)
[2020-12-09] MEDS ORDERED: SODIUM CHLORIDE 0.9% 1,000 ML IV ONE (17:00)
[2020-12-09 19:25] LABS: Urine Bacteria NONE SEEN /hpf (None Seen); Urine Blood Negative /uL (Negative); Urine Specific Gravity 1.013 (1.001-1.035); Urine WBC 1 /hpf (0 - 5)
[2020-12-09] MEDS ORDERED: NITROGLYCERIN 0.4 MG SL TAB SL PRN (19:30)
[2020-12-09] MEDS ORDERED: DEXTROSE (50%) 50ML SYRG IV PRN (19:30)
[2020-12-09] MEDS ORDERED: POTASSIUM CHLORIDE 40 MEQ, LIDOCAINE 1% (LOCAL ANESTH.) 4 ML in SODIUM CHL 0.9% 250 ML IV ONE (19:30)
[2020-12-09] MEDS ORDERED: MORPHINE SULFATE INJECTION 2 MG/ML SYRG IV PRN (19:30)
[2020-12-09] MEDS ORDERED: cloNIDine HCL 0.1 MG TAB ONE (21:30)
[2020-12-09] MEDS ORDERED: cloNIDine HCL 0.1 MG TAB PO PRN (21:30)
[2020-12-09 21:45] VITALS: BP 150/73
[2020-12-09 22:00] VITALS: BP 150/73
[2020-12-10] MEDS: ACCU-CHEK COMFORT CURVE STRIP VI SCH ×4 (00:33→17:04)
[2020-12-10] MEDS: InsuLIN REG 1unit/0.01ml Soln (100units/ml) SC SCH ×4 (00:49→17:05)
[2020-12-10] MEDS: SOD CHL 0.9%/ KCL 20MEQ 1,000 ML IV SCH ×3 (00:55→15:30)
[2020-12-10 05:00] VITALS: BP 130/55
[2020-12-10] MEDS ORDERED: HYDROCORTONE 1% TOPICAL CREAM 30 GM TUBE TOP ONE (07:15)
[2020-12-10] MEDS ORDERED: DOCUSATE SOD 100 MG CAP PO PRN (07:15)
[2020-12-10] MEDS ORDERED: LORazepam 0.5 MG TAB PO PRN (07:15)
[2020-12-10] MEDS ORDERED: hydrALAZINE HCL 20 MG/ML VL IV PRN (07:15)
[2020-12-10] MEDS ORDERED: ONDANSETRON HCL 4 MG/2 ML VIAL IV PRN (07:15)
[2020-12-10] MEDS ORDERED: ACETAMINOPHEN 325 MG TAB PO PRN (07:15)
[2020-12-10] MEDS ORDERED: MORPHINE SULFATE INJECTION 2 MG/ML SYRG IV PRN ×2 (07:15)
[2020-12-10] MEDS ORDERED: ALUM & MAG HYDROX-SIMETH LIQ(MAALOX) 30 ML PO PRN (07:15)
[2020-12-10] MEDS ORDERED: DEXTROSE (50%) 50ML SYRG IV PRN (07:15)
[2020-12-10] MEDS ORDERED: HYDROcodone-ACET 5/325MG TAB PO PRN (07:15)
[2020-12-10] MEDS ORDERED: NITROGLYCERIN 0.4 MG SL TAB SL PRN (07:15)
[2020-12-10] MEDS ORDERED: CLOTRIMAZOLE 1 % CREAM 15GM TOP ONE (07:15)
[2020-12-10 08:41] LABS: Basophils # (auto) 0.1 10 ^3/uL (0-0.2); Eosinophils # (auto) 0.3 10 ^3/uL (0-0.8); Eosinophils % (auto) 4.1 % (0.0-7.0); Hematocrit 26.8 % (36.0-46.0); Lymphocytes # (auto) 1.1 10 ^3/uL (0.4-5.4); Lymphocytes % (auto) 15.5 % (10.0-50.0); Mean Corpuscular Hemoglobin 30.6 pg (28.0-32.0); Mean Corpuscular Hgb Conc. 33.6 g/dL (32.0-36.0); Mean Corpuscular Volume 90.9 fL (80.0-100.0); Monocytes # (auto) 0.8 10 ^3/uL (0-1.3); Monocytes % (auto) 11.5 % (0.0-12.0); Neutrophils % (auto) 67.9 % (37.0-80.0); Red Blood Cells 2.95 10^6/uL (4.0-5.20); White Blood Cell 7.3 10^3/uL (4.4-10.8)
[2020-12-10 08:55] LABS: INR 1.08 (0.9-1.15)
[2020-12-10 09:00] VITALS: BP 133/54
[2020-12-10 09:04] LABS: Albumin 1.6 g/dL (3.4-5.0); Calcium 7.7 mg/dL (8.5-10.1); Magnesium 1.9 mg/dL (1.6-2.6); Potassium 3.1 mmol/L (3.5-5.1)
[2020-12-10 09:09] LABS: BUN/Creatinine Ratio 11.1; Bilirubin, Total 0.4 mg/dL (0.2-1.0); Phosphorus 2.7 mg/dL (2.5-4.90); Total Protein 4.8 g/dL (6.4-8.2)
[2020-12-10] MEDS ORDERED: GEMFIBROZIL 600 MG TAB PO SCH (10:00)
[2020-12-10] MEDS ORDERED: APIXABAN 2.5 MG TAB PO SCH (10:00)
[2020-12-10] MEDS ORDERED: ATORVASTATIN 20 MG TAB PO SCH ×2 (10:00→22:00)
[2020-12-10] MEDS ORDERED: MAGNESIUM OXIDE 400 MG TAB PO ONE (10:45)
[2020-12-10] MEDS ORDERED: POTASSIUM CHL 20 Meq TABLET PO ONE (10:45)
[2020-12-10 12:34] VITALS: BP 141/63
[2020-12-10 13:00] VITALS: BP 141/63
[2020-12-10 17:00] VITALS: BP 151/63
[2020-12-10] MEDS ORDERED: CLOTRIMAZOLE 1 % CREAM 15GM TOP SCH (22:00)
[2020-12-10] MEDS ORDERED: InsuLIN REG 1unit/0.01ml Soln (100units/ml) SC SCH (22:00)
[2020-12-10] MEDS ORDERED: ASPirin-EC 81 mg tab PO SCH (22:00)
[2020-12-10] MEDS ORDERED: HYDROCORTONE 1% TOPICAL CREAM 30 GM TUBE TOP SCH (22:00)
== END 2020-12-10 18:48 | disposition home health service (06) | DRG 606 ==
LOC: ER 15:06 → TELE 19:24 → TELE-EAST 21:45
PROVIDERS: ADMIT Hospitalist; ATTEND Internal Medicine
DX: L24.9 Irritant contact dermatitis, unspecified cause (principal); E43 Unspecified severe protein-calorie malnutrition; L89.152 Pressure ulcer of sacral region, stage 2; D64.9 Anemia, unspecified; E87.6 Hypokalemia; E11.9 Type 2 diabetes mellitus without complications; L22 Diaper dermatitis; Z87.81 Personal history of (healed) traumatic fracture; Z96.642 Presence of left artificial hip joint; I11.0 Hypertensive heart disease with heart failure; I50.9 Heart failure, unspecified; F32.9 Major depressive disorder, single episode, unspecified; E78.5 Hyperlipidemia, unspecified; Z20.822 Contact with and (suspected) exposure to COVID-19; Z79.84 Long term (current) use of oral hypoglycemic drugs; Z79.899 Other long term (current) drug therapy; Z82.3 Family history of stroke; F41.9 Anxiety disorder, unspecified; K21.9 Gastro-esophageal reflux disease without esophagitis; Z88.0 Allergy status to penicillin
CPT/HCPCS: 36415; 71045; 80053; 80061; 81001; 82962; 83036; 83605; 83735; 84100; 84484; 85025; 85610; 87040; 87426; 93005; 96361; 96365; G0378; J1815; J2001

== ENCOUNTER → 2020-12-14 | Outpatient (CLI) | payer OTHER ==
[~2020-12-14] MED LIST changes: +ASPI-231 PO; -ASPI1TAB20 PO
[2020-12-14 13:31] LABS: BUN/Creatinine Ratio 7.9; Calcium 8.9 mg/dL (8.5-10.1); Potassium 3.4 mmol/L (3.5-5.1)
== END | disposition home or self-care (01) ==
LOC: LAB 12:10
PROVIDERS: ATTEND Internal Medicine
DX: I10 Essential (primary) hypertension (principal)
CPT/HCPCS: 36415; 80048

== ENCOUNTER → 2020-12-26 | Outpatient (CLI) | payer OTHER ==
[2020-12-26 10:29] LABS: Basophils # (auto) 0.1 10 ^3/uL (0-0.2); Basophils % (auto) 1.2 % (0.0-2.0); Eosinophils # (auto) 0.2 10 ^3/uL (0-0.8); Eosinophils % (auto) 2.1 % (0.0-7.0); Hematocrit 36.5 % (36.0-46.0); Hemoglobin 11.9 g/dL (12.2-16.2); Lymphocytes # (auto) 1.9 10 ^3/uL (0.4-5.4); Lymphocytes % (auto) 26.5 % (10.0-50.0); Mean Corpuscular Hemoglobin 29.8 pg (28.0-32.0); Mean Corpuscular Hgb Conc. 32.6 g/dL (32.0-36.0); Mean Corpuscular Volume 91.2 fL (80.0-100.0); Monocytes # (auto) 0.6 10 ^3/uL (0-1.3); Monocytes % (auto) 8.4 % (0.0-12.0); Neutrophils # (auto) 4.5 10 ^3/uL (1.6-8.6); Neutrophils % (auto) 61.8 % (37.0-80.0); Nucleated Red Blood Cells % 0.1 %; Platelet Count (auto) 269 10^3/uL (140-450); Red Cell Distribution Width 15.7 % (11.8-14.3); White Blood Cell 7.4 10^3/uL (4.4-10.8)
[2020-12-26 11:29] LABS: Albumin 2.3 g/dL (3.4-5.0); Calcium 8.6 mg/dL (8.5-10.1)
[2020-12-26 11:33] LABS: BUN/Creatinine Ratio 11.6; Bilirubin, Total 0.6 mg/dL (0.2-1.0); Total Protein 6.2 g/dL (6.4-8.2)
== END | disposition home or self-care (01) ==
LOC: LAB 10:13
PROVIDERS: ATTEND Internal Medicine
DX: E11.69 Type 2 diabetes mellitus with other specified complication (principal); E78.5 Hyperlipidemia, unspecified; I10 Essential (primary) hypertension
CPT/HCPCS: 36415; 80053; 83036; 85025

== ENCOUNTER → 2021-02-06 | Outpatient (CLI) | payer OTHER ==
[2021-02-06 10:35] LABS: Albumin 2.5 g/dL (3.4-5.0); Calcium 8.5 mg/dL (8.5-10.1); Potassium 3.8 mmol/L (3.5-5.1)
[2021-02-06 10:38] LABS: BUN/Creatinine Ratio 10.6; Bilirubin, Total 0.6 mg/dL (0.2-1.0); Total Protein 6.4 g/dL (6.4-8.2)
== END | disposition home or self-care (01) ==
LOC: LAB 09:34
PROVIDERS: ATTEND Internal Medicine
DX: E11.22 Type 2 diabetes mellitus with diabetic chronic kidney disease (principal); E11.69 Type 2 diabetes mellitus with other specified complication; N18.30 Chronic kidney disease, stage 3 unspecified
CPT/HCPCS: 36415; 80053; 83036

== ENCOUNTER → 2021-06-10 | Outpatient (CLI) | payer OTHER ==
[2021-06-10 14:16] LABS: Albumin 2.4 g/dL (3.4-5.0); Calcium 8.1 mg/dL (8.5-10.1); Potassium 3.9 mmol/L (3.5-5.1)
[2021-06-10 14:21] LABS: BUN/Creatinine Ratio 15.6; Bilirubin, Total 0.5 mg/dL (0.2-1.0); Total Protein 6.6 g/dL (6.4-8.2)
== END | disposition home or self-care (01) ==
LOC: LAB 13:29
PROVIDERS: ATTEND Internal Medicine
DX: E11.22 Type 2 diabetes mellitus with diabetic chronic kidney disease (principal); N18.30 Chronic kidney disease, stage 3 unspecified; E78.5 Hyperlipidemia, unspecified
CPT/HCPCS: 36415; 80053; 83036

== ENCOUNTER 2021-07-29 15:51 | Inpatient (IN) | payer OTHER ==
[~2021-07-29] VITALS: Ht 160 cm; Wt 57.3 kg
[~2021-07-29 15:51] MED LIST changes: -ASPI-231 PO; +ASPI1TAB20 PO
[2021-07-29 16:43] LABS: Basophils # (auto) 0.1 10 ^3/uL (0-0.2); Eosinophils # (auto) 0.1 10 ^3/uL (0-0.8); Eosinophils % (auto) 0.8 % (0.0-7.0); Hematocrit 36.8 % (36.0-46.0); Hemoglobin 12.5 g/dL (12.2-16.2); Lymphocytes # (auto) 1.3 10 ^3/uL (0.4-5.4); Lymphocytes % (auto) 16.5 % (10.0-50.0); Mean Corpuscular Hemoglobin 30.9 pg (28.0-32.0); Mean Corpuscular Hgb Conc. 33.8 g/dL (32.0-36.0); Mean Corpuscular Volume 91.4 fL (80.0-100.0); Monocytes # (auto) 0.7 10 ^3/uL (0-1.3); Neutrophils # (auto) 5.6 10 ^3/uL (1.6-8.6); Neutrophils % (auto) 72.7 % (37.0-80.0); Red Blood Cells 4.03 10^6/uL (4.0-5.20); Red Cell Distribution Width 12.8 % (11.8-14.3); White Blood Cell 7.8 10^3/uL (4.4-10.8)
[2021-07-29] MEDS ORDERED: cloNIDine HCL 0.1 MG TAB PO ONE (17:00)
[2021-07-29 17:06] LABS: Albumin 2.2 g/dL (3.4-5.0); Calcium 8.2 mg/dL (8.5-10.1); Potassium 3.1 mmol/L (3.5-5.1)
[2021-07-29 17:14] LABS: BUN/Creatinine Ratio 19.7; Bilirubin, Total 0.6 mg/dL (0.2-1.0); Total Protein 6.6 g/dL (6.4-8.2)
[2021-07-29] MEDS ORDERED: SODIUM CHLORIDE 0.9% 1,000 ML IV ONE ×2 (17:45→20:00)
[2021-07-29] MEDS ORDERED: InsuLIN REG 1unit/0.01ml Soln (100units/ml) IV ONE (17:45)
[2021-07-29] MEDS ORDERED: DEXTROSE (50%) 50ML SYRG IV PRN (20:00)
[2021-07-29] MEDS ORDERED: ACETAMINOPHEN 325 MG TAB PO PRN (20:00)
[2021-07-29] MEDS ORDERED: HYDROcodone-ACET 5/325MG TAB PO PRN (20:00)
[2021-07-29] MEDS ORDERED: ONDANSETRON HCL 4 MG/2 ML VIAL IV PRN (20:00)
[2021-07-29] MEDS ORDERED: DOCUSATE SOD 100 MG CAP PO PRN (20:00)
[2021-07-29] MEDS: ACCU-CHEK COMFORT CURVE STRIP VI SCH (20:54)
[2021-07-29] MEDS: POTASSIUM CHL 20MEQ/100ML 100 ML IV SCH ×2 (20:54→22:54)
[2021-07-29] MEDS ORDERED: NITROGLYCERIN 0.4 MG SL TAB SL PRN (21:00)
[2021-07-29] MEDS: hydrALAZINE HCL 20 MG/ML VL IV PRN (21:00)
[2021-07-29] MEDS ORDERED: MORPHINE SULFATE INJECTION 2 MG/ML SYRG IV PRN (21:00)
[2021-07-29] MEDS: InsuLIN REG 1unit/0.01ml Soln (100units/ml) SC SCH (21:01)
[2021-07-29] MEDS: INSULIN LANTUS (GLARGINE) 1 /0.01ml (100units/ml) SC SCH (21:02)
[2021-07-29] MEDS ORDERED: ATORVASTATIN 20 MG TAB PO SCH (22:00)
[2021-07-29] MEDS: SODIUM CHLOR 0.9% PF (SALINE LOCK) 10ML VIAL/SYR IV SCH (22:19)
[2021-07-29] MEDS: CARVEDILOL 12.5 MG TAB PO SCH (22:40)
[2021-07-30] VITALS: BP 178/74
[2021-07-30] MEDS: ACCU-CHEK COMFORT CURVE STRIP VI SCH ×6 (00:02→20:22)
[2021-07-30] MEDS: InsuLIN REG 1unit/0.01ml Soln (100units/ml) SC SCH ×6 (00:04→20:25)
[2021-07-30] MEDS: hydrALAZINE HCL 20 MG/ML VL IV PRN ×2 (00:05→21:56)
[2021-07-30 05:14] VITALS: BP 143/56
[2021-07-30] MEDS: INSULIN LANTUS (GLARGINE) 1 /0.01ml (100units/ml) SC SCH ×2 (06:23→22:13)
[2021-07-30] MEDS: SODIUM CHLOR 0.9% PF (SALINE LOCK) 10ML VIAL/SYR IV SCH ×3 (06:24→21:58)
[2021-07-30 08:00] VITALS: BP 146/76
[2021-07-30 08:30] VITALS: BP 146/76
[2021-07-30] MEDS ORDERED: SODIUM BICARBONATE 8.4 % INJ 50ML VIAL IV ONE (08:45)
[2021-07-30 09:37] LABS: Potassium 3.3 mmol/L (3.5-5.1)
[2021-07-30 09:56] LABS: Albumin 1.9 g/dL (3.4-5.0); BUN/Creatinine Ratio 20.9; Bilirubin, Total 0.4 mg/dL (0.2-1.0); Total Protein 5.8 g/dL (6.4-8.2)
[2021-07-30] MEDS ORDERED: HEPARIN SODIUM (PORCINE) 5000 UNITS/ML 1ML VIAL SC SCH (10:00)
[2021-07-30] MEDS: SOD CHL 0.9%/ KCL 40MEQ 1,000 ML IV SCH ×2 (10:49→22:05)
[2021-07-30] MEDS: ASPirin 81 mg TAB PO SCH (10:50)
[2021-07-30] MEDS: ENOXAPARIN SOD 60 MG/0.6 ML SYRINGE SC SCH (10:50)
[2021-07-30] MEDS: FAMOTIDINE (10MG/ML) 2ML VL IV SCH (10:50)
[2021-07-30] MEDS: CARVEDILOL 12.5 MG TAB PO SCH ×2 (10:52→21:54)
[2021-07-30] MEDS ORDERED: MAGNESIUM OXIDE 400 MG TAB PO ONE (11:30)
[2021-07-30] MEDS ORDERED: POTASSIUM CHL 20 Meq TABLET PO ONE (11:30)
[2021-07-30 14:15] LABS: Basophils # (auto) 0.1 10 ^3/uL (0-0.2); Basophils % (auto) 0.6 % (0.0-2.0); Eosinophils # (auto) 0.2 10 ^3/uL (0-0.8); Eosinophils % (auto) 1.9 % (0.0-7.0); Hemoglobin 11.3 g/dL (12.2-16.2); Lymphocytes # (auto) 1.4 10 ^3/uL (0.4-5.4); Lymphocytes % (auto) 15.6 % (10.0-50.0); Mean Corpuscular Hemoglobin 31.5 pg (28.0-32.0); Mean Corpuscular Hgb Conc. 35.4 g/dL (32.0-36.0); Monocytes # (auto) 0.7 10 ^3/uL (0-1.3); Monocytes % (auto) 7.5 % (0.0-12.0); Neutrophils # (auto) 6.8 10 ^3/uL (1.6-8.6); Neutrophils % (auto) 74.4 % (37.0-80.0); Nucleated Red Blood Cells % 0.1 %; Red Cell Distribution Width 12.8 % (11.8-14.3); White Blood Cell 9.2 10^3/uL (4.4-10.8)
[2021-07-30 14:30] LABS: INR 0.98 (0.9-1.15); Partial Thromboplastin Time 29.1 sec (23.6-33.0)
[2021-07-30 14:32] LABS: Magnesium 1.7 mg/dL (1.6-2.6); Phosphorus 2.8 mg/dL (2.5-4.90)
[2021-07-30 16:38] VITALS: BP 166/72
[2021-07-30] MEDS: MAGNESIUM SULFATE 1GM/100ML 100 ML IV SCH ×2 (17:37→18:43)
[2021-07-30] MEDS ORDERED: NIFEdipine ER 30 MG TAB PO ONE ×2 (20:45→22:00)
[2021-07-30] MEDS: ATORVASTATIN 20 MG TAB PO SCH (21:55)
[2021-07-30 22:00] VITALS: BP 173/60
[2021-07-31] MEDS: ACCU-CHEK COMFORT CURVE STRIP VI SCH ×6 (00:22→20:19)
[2021-07-31] MEDS: InsuLIN REG 1unit/0.01ml Soln (100units/ml) SC SCH ×6 (04:00→20:19)
[2021-07-31 05:00] VITALS: BP 134/65
[2021-07-31] MEDS: SODIUM CHLOR 0.9% PF (SALINE LOCK) 10ML VIAL/SYR IV SCH ×3 (05:44→22:27)
[2021-07-31] MEDS: INSULIN LANTUS (GLARGINE) 1 /0.01ml (100units/ml) SC SCH ×2 (06:30→22:27)
[2021-07-31 09:00] VITALS: BP 137/56
[2021-07-31] MEDS: ASPirin 81 mg TAB PO SCH (10:35)
[2021-07-31] MEDS: ENOXAPARIN SOD 60 MG/0.6 ML SYRINGE SC SCH (10:35)
[2021-07-31] MEDS: CARVEDILOL 12.5 MG TAB PO SCH ×2 (10:35→22:25)
[2021-07-31] MEDS: NIFEdipine ER 30 MG TAB PO SCH (10:37)
[2021-07-31 11:31] LABS: Albumin 2.1 g/dL (3.4-5.0); Calcium 8.1 mg/dL (8.5-10.1); Potassium 4.5 mmol/L (3.5-5.1)
[2021-07-31 11:35] LABS: BUN/Creatinine Ratio 16.8; Bilirubin, Total 0.7 mg/dL (0.2-1.0); Magnesium 2.9 mg/dL (1.6-2.6); Phosphorus 2.2 mg/dL (2.5-4.90); Total Protein 5.6 g/dL (6.4-8.2)
[2021-07-31 13:00] VITALS: BP 112/49
[2021-07-31] MEDS: SOD CHL 0.9%/ KCL 40MEQ 1,000 ML IV SCH (13:13)
[2021-07-31 17:00] VITALS: BP 105/35
[2021-07-31 22:00] VITALS: BP 124/49
[2021-07-31] MEDS: ATORVASTATIN 20 MG TAB PO SCH (22:24)
[2021-08-01] MEDS: InsuLIN REG 1unit/0.01ml Soln (100units/ml) SC SCH ×6 (00:43→20:04)
[2021-08-01] MEDS: ACCU-CHEK COMFORT CURVE STRIP VI SCH ×6 (04:00→20:02)
[2021-08-01] MEDS: SOD CHL 0.9%/ KCL 40MEQ 1,000 ML IV SCH ×3 (04:31→20:02)
[2021-08-01 05:00] VITALS: BP 106/45
[2021-08-01] MEDS: SODIUM CHLOR 0.9% PF (SALINE LOCK) 10ML VIAL/SYR IV SCH ×3 (05:58→22:00)
[2021-08-01] MEDS: INSULIN LANTUS (GLARGINE) 1 /0.01ml (100units/ml) SC SCH ×2 (06:34→22:00)
[2021-08-01 09:00] VITALS: BP 111/78
[2021-08-01] MEDS: ENOXAPARIN SOD 60 MG/0.6 ML SYRINGE SC SCH (09:16)
[2021-08-01] MEDS: ASPirin 81 mg TAB PO SCH (09:16)
[2021-08-01] MEDS: FAMOTIDINE (10MG/ML) 2ML VL IV SCH (09:16)
[2021-08-01] MEDS: NIFEdipine ER 30 MG TAB PO SCH (09:16)
[2021-08-01] MEDS: CARVEDILOL 12.5 MG TAB PO SCH ×2 (09:18→22:12)
[2021-08-01 12:40] LABS: Urine Bacteria FEW /hpf (None Seen); Urine Blood TRACE /uL (Negative); Urine Specific Gravity 1.016 (1.001-1.035); Urine WBC 4 /hpf (0 - 5)
[2021-08-01 12:49] LABS: Protein, Urine 556.7 mg/dL (0.0-11.9)
[2021-08-01 13:00] VITALS: BP 126/55
[2021-08-01 17:00] VITALS: BP 131/49
[2021-08-01 22:00] VITALS: BP 141/66
[2021-08-01] MEDS: ATORVASTATIN 20 MG TAB PO SCH (22:11)
[2021-08-02] VITALS (10 sets, daily range): BP systolic 115–171; BP diastolic 50–68
[2021-08-02] MEDS: ACCU-CHEK COMFORT CURVE STRIP VI SCH ×6 (04:12→20:40)
[2021-08-02] MEDS: InsuLIN REG 1unit/0.01ml Soln (100units/ml) SC SCH ×6 (04:12→20:40)
[2021-08-02] MEDS: hydrALAZINE HCL 20 MG/ML VL IV PRN (05:39)
[2021-08-02 05:59] LABS: Basophils # (auto) 0.1 10 ^3/uL (0-0.2); Basophils % (auto) 1.4 % (0.0-2.0); Eosinophils # (auto) 0.1 10 ^3/uL (0-0.8); Eosinophils % (auto) 1.3 % (0.0-7.0); Hematocrit 34.1 % (36.0-46.0); Hemoglobin 11.3 g/dL (12.2-16.2); Lymphocytes # (auto) 1.2 10 ^3/uL (0.4-5.4); Lymphocytes % (auto) 13.6 % (10.0-50.0); Mean Corpuscular Hemoglobin 30.7 pg (28.0-32.0); Mean Corpuscular Hgb Conc. 33.2 g/dL (32.0-36.0); Mean Corpuscular Volume 92.6 fL (80.0-100.0); Monocytes # (auto) 0.7 10 ^3/uL (0-1.3); Monocytes % (auto) 7.9 % (0.0-12.0); Neutrophils % (auto) 75.8 % (37.0-80.0); Nucleated Red Blood Cells % 0.1 %; Red Blood Cells 3.68 10^6/uL (4.0-5.20); Red Cell Distribution Width 13.3 % (11.8-14.3); White Blood Cell 9.2 10^3/uL (4.4-10.8)
[2021-08-02] MEDS: SODIUM CHLOR 0.9% PF (SALINE LOCK) 10ML VIAL/SYR IV SCH ×3 (06:29→21:37)
[2021-08-02] MEDS: SOD CHL 0.9%/ KCL 40MEQ 1,000 ML IV SCH ×2 (06:29→06:30)
[2021-08-02 06:37] LABS: BUN/Creatinine Ratio 19.9; Calcium 7.5 mg/dL (8.5-10.1); Magnesium 2.8 mg/dL (1.6-2.6)
[2021-08-02] MEDS: INSULIN LANTUS (GLARGINE) 1 /0.01ml (100units/ml) SC SCH ×2 (06:42→21:36)
[2021-08-02 06:44] LABS: Potassium 5.9 mmol/L (3.5-5.1)
[2021-08-02] MEDS ORDERED: SODIUM ZIRCONIUM CYCL 10 GM PAK PO ONE ×2 (07:00→08:00)
[2021-08-02] MEDS ORDERED: INSULIN LISPRO (HUMAN) 100 UNITS/ML ML SC ONE (08:00)
[2021-08-02] MEDS ORDERED: DEXTROSE (50%) 50ML SYRG IV ONE (08:00)
[2021-08-02] MEDS ORDERED: ALBUTEROL SULF 2.5 MG/0.5ML(0.5%) NEB SOLN NEB ONE (08:00)
[2021-08-02] MEDS ORDERED: SODIUM BICARBONATE 8.4 % INJ 50ML VIAL IV ONE (09:00)
[2021-08-02] MEDS: CARVEDILOL 12.5 MG TAB PO SCH ×2 (09:46→21:37)
[2021-08-02] MEDS: ASPirin 81 mg TAB PO SCH (09:46)
[2021-08-02] MEDS: ENOXAPARIN SOD 60 MG/0.6 ML SYRINGE SC SCH (09:47)
[2021-08-02] MEDS: NIFEdipine ER 30 MG TAB PO SCH (09:47)
[2021-08-02] MEDS ORDERED: IOHEXOL 350 MG/ML 100ML IJ ONE (13:26)
[2021-08-02] MEDS ORDERED: LIDOCAINE 2%HCL (LOCAL ANESTH.) INJ 20ML MDV ONE (13:26)
[2021-08-02] MEDS ORDERED: ANGIOMAX 250 MG VIAL IV ONE (13:31)
[2021-08-02] MEDS ORDERED: fentaNYL CITRATE 100 MCG/2 ML VL ONE (13:32)
[2021-08-02] MEDS ORDERED: MIDAZOLAM HCL 2MG/2ML 2ml VIAL (1mg/ml) ONE (13:33)
[2021-08-02] MEDS ORDERED: SODIUM CHL 0.9% 0 ML ONE (13:33)
[2021-08-02] MEDS: ATORVASTATIN 20 MG TAB PO SCH (21:36)
[2021-08-03] MEDS: ACCU-CHEK COMFORT CURVE STRIP VI SCH ×5 (00:16→16:01)
[2021-08-03] MEDS: InsuLIN REG 1unit/0.01ml Soln (100units/ml) SC SCH ×5 (04:00→16:11)
[2021-08-03 05:00] VITALS: BP 131/58
[2021-08-03] MEDS: SODIUM CHLOR 0.9% PF (SALINE LOCK) 10ML VIAL/SYR IV SCH ×2 (05:15→15:58)
[2021-08-03 06:01] LABS: Basophils # (auto) 0.1 10 ^3/uL (0-0.2); Eosinophils # (auto) 0.2 10 ^3/uL (0-0.8); Hematocrit 28.5 % (36.0-46.0); Hemoglobin 9.6 g/dL (12.2-16.2); Lymphocytes # (auto) 1.4 10 ^3/uL (0.4-5.4); Lymphocytes % (auto) 16.1 % (10.0-50.0); Mean Corpuscular Hemoglobin 30.9 pg (28.0-32.0); Mean Corpuscular Hgb Conc. 33.5 g/dL (32.0-36.0); Mean Corpuscular Volume 92.1 fL (80.0-100.0); Monocytes % (auto) 11.5 % (0.0-12.0); Neutrophils # (auto) 5.8 10 ^3/uL (1.6-8.6); Neutrophils % (auto) 69.4 % (37.0-80.0); Red Cell Distribution Width 13.3 % (11.8-14.3); White Blood Cell 8.4 10^3/uL (4.4-10.8)
[2021-08-03 06:16] LABS: Potassium 4.1 mmol/L (3.5-5.1)
[2021-08-03 06:24] LABS: BUN/Creatinine Ratio 16.9; Calcium 7.4 mg/dL (8.5-10.1)
[2021-08-03 09:00] VITALS: BP 145/68
[2021-08-03] MEDS: INSULIN LANTUS (GLARGINE) 1 /0.01ml (100units/ml) SC SCH (09:09)
[2021-08-03] MEDS: ASPirin 81 mg TAB PO SCH (09:10)
[2021-08-03] MEDS: FAMOTIDINE (10MG/ML) 2ML VL IV SCH (09:10)
[2021-08-03] MEDS: NIFEdipine ER 30 MG TAB PO SCH (09:11)
[2021-08-03] MEDS: CARVEDILOL 12.5 MG TAB PO SCH (09:11)
[2021-08-03] MEDS ORDERED: EMPA1TAB3 PO (13:17)
[2021-08-03] MEDS ORDERED: CLOP75TA28 PO (13:18)
[2021-08-03 13:22] VITALS: BP 120/68
[2021-08-03 13:24] VITALS: BP 137/58
[2021-08-03 17:18] VITALS: BP 142/63
== END 2021-08-03 17:05 | disposition home or self-care (01) | DRG 682 ==
LOC: ER 15:51 → TELE 20:49 → TELE-WESTW 23:08 → WEST WING 08-02 17:45
PROVIDERS: ADMIT Nurse Practitioner Family; ATTEND Internal Medicine
PROC: 4A023N7 Measurement of Cardiac Sampling and Pressure, Left Heart, Percutaneous Approach (ICD-10-PCS; principal; 2021-08-02)
PROC: B211YZZ Fluoroscopy of Multiple Coronary Arteries using Other Contrast (ICD-10-PCS; 2021-08-02)
PROC: B215YZZ Fluoroscopy of Left Heart using Other Contrast (ICD-10-PCS; 2021-08-02)
DX: N17.0 Acute kidney failure with tubular necrosis (principal); I21.A1 Myocardial infarction type 2; E43 Unspecified severe protein-calorie malnutrition; I13.0 Hypertensive heart and chronic kidney disease with heart failure and stage 1 through stage 4 chronic kidney disease, or unspecified chronic kidney disease; E87.1 Hypo-osmolality and hyponatremia; E87.5 Hyperkalemia; E11.65 Type 2 diabetes mellitus with hyperglycemia; E11.22 Type 2 diabetes mellitus with diabetic chronic kidney disease; D64.9 Anemia, unspecified; N18.9 Chronic kidney disease, unspecified; E87.6 Hypokalemia; Z20.822 Contact with and (suspected) exposure to COVID-19; I50.9 Heart failure, unspecified; F41.9 Anxiety disorder, unspecified; K21.9 Gastro-esophageal reflux disease without esophagitis; Z82.3 Family history of stroke; Z68.22 Body mass index [BMI] 22.0-22.9, adult
CPT/HCPCS: 36415; 36600; 70450; 71045; 76775; 80048; 80053; 81001; 82010; 82306; 82570; 82805; 82962; 83036; 83735; 83880; 83930; 83935; 84100; 84132; 84156; 84300; 84439; 84443; 84484; 85025; 85610; 85730; 86850; 86900; 86901; 87426; 93005; 93306; 96361; 96374; 99152; 99153; G0378; J1815; J2250; J3480; J3490

== ENCOUNTER 2021-08-21 08:20 | Inpatient (IN) | payer OTHER ==
[~2021-08-21] VITALS: Ht 162.6 cm; Wt 68.4 kg
[~2021-08-21 08:20] MED LIST changes: -CLON0.2T PO; +CLOP75TA28 PO; +EMPA1TAB3 PO
[2021-08-21 10:19] LABS: Basophils # (auto) 0.2 10 ^3/uL (0-0.2); Basophils % (auto) 1.2 % (0.0-2.0); Eosinophils # (auto) 0 10 ^3/uL (0-0.8); Eosinophils % (auto) 0.2 % (0.0-7.0); Hemoglobin 11.8 g/dL (12.2-16.2); Lymphocytes # (auto) 0.6 10 ^3/uL (0.4-5.4); Lymphocytes % (auto) 4.5 % (10.0-50.0); Mean Corpuscular Hemoglobin 29.2 pg (28.0-32.0); Mean Corpuscular Hgb Conc. 32.9 g/dL (32.0-36.0); Mean Corpuscular Volume 88.9 fL (80.0-100.0); Monocytes # (auto) 0.7 10 ^3/uL (0-1.3); Monocytes % (auto) 4.7 % (0.0-12.0); Neutrophils # (auto) 12.5 10 ^3/uL (1.6-8.6); Neutrophils % (auto) 89.4 % (37.0-80.0); Red Blood Cells 4.05 10^6/uL (4.0-5.20); Red Cell Distribution Width 13.5 % (11.8-14.3)
[2021-08-21 11:22] LABS: Albumin 1.9 g/dL (3.4-5.0); BUN/Creatinine Ratio 17.1; Calcium 8.4 mg/dL (8.5-10.1)
[2021-08-21 11:25] LABS: Bilirubin, Total 0.7 mg/dL (0.2-1.0); Total Protein 6.1 g/dL (6.4-8.2)
[2021-08-21 11:29] LABS: Potassium 2.3 mmol/L (3.5-5.1)
[2021-08-21] MEDS ORDERED: POTASSIUM EFFERVESENT TAB 25 MEQ PO ONE (12:45)
[2021-08-21] MEDS ORDERED: SODIUM CHLORIDE 0.9% 1,000 ML IV ONE (12:45)
[2021-08-21] MEDS ORDERED: SODIUM CHLORIDE 0.9% 500 ML IV ONE (12:45)
[2021-08-21 13:00] LABS: Magnesium 2.1 mg/dL (1.6-2.6)
[2021-08-21] MEDS ORDERED: NITROGLYCERIN 0.4 MG SL TAB SL PRN (14:30)
[2021-08-21] MEDS ORDERED: DOCUSATE SOD 100 MG CAP PO PRN (14:30)
[2021-08-21] MEDS ORDERED: ACETAMINOPHEN 325 MG TAB PO PRN (14:30)
[2021-08-21] MEDS ORDERED: INSULIN LANTUS (GLARGINE) 1 /0.01ml (100units/ml) SC ONE (14:30)
[2021-08-21] MEDS ORDERED: InsuLIN R (HUMAN) 100 UNITS in SODIUM CHL 0.9% 99 ML IV SCH (14:30)
[2021-08-21] MEDS ORDERED: ONDANSETRON HCL 4 MG/2 ML VIAL IV PRN (14:30)
[2021-08-21] MEDS ORDERED: SODIUM CHLORIDE 0.9% 1,000 ML IV SCH ×2 (14:30→18:30)
[2021-08-21] MEDS ORDERED: ASPirin 325 MG TAB PO ONE (14:30)
[2021-08-21] MEDS ORDERED: MORPHINE SULFATE INJECTION 2 MG/ML SYRG IV PRN ×2 (14:30)
[2021-08-21] MEDS ORDERED: MAGNESIUM SULFATE 1GM/100ML 200 ML IV ONE (14:30)
[2021-08-21] MEDS ORDERED: DEXTROSE (50%) 50ML SYRG IV PRN (14:30)
[2021-08-21] MEDS ORDERED: ATORVASTATIN 20 MG TAB PO ONE (14:30)
[2021-08-21] MEDS: ACCU-CHEK COMFORT CURVE STRIP VI SCH ×7 (15:00→22:49)
[2021-08-21 15:08] LABS: Magnesium 1.8 mg/dL (1.6-2.6); Phosphorus 3.3 mg/dL (2.5-4.90)
[2021-08-21 15:25] LABS: BUN/Creatinine Ratio 18.9; Calcium 7.7 mg/dL (8.5-10.1)
[2021-08-21 15:32] LABS: Potassium 2.6 mmol/L (3.5-5.1)
[2021-08-21] MEDS: SODIUM CHLORIDE 0.9% 1,000 ML IV SCH ×3 (16:01→20:05)
[2021-08-21] MEDS: InsuLIN REG 1unit/0.01ml Soln (100units/ml) SC SCH (17:00)
[2021-08-21] MEDS: D5W/SOD CHL 0.45%/KCL 20MEQ 1,000 ML IV SCH ×2 (17:33→20:13)
[2021-08-21 21:40] LABS: BUN/Creatinine Ratio 17.6; Calcium 7.1 mg/dL (8.5-10.1)
[2021-08-21 22:00] LABS: Potassium 2.6 mmol/L (3.5-5.1)
[2021-08-21] MEDS: POTASSIUM CHL 20 Meq TABLET PO SCH (23:35)
[2021-08-22] MEDS: ACCU-CHEK COMFORT CURVE STRIP VI SCH ×7 (00:09→18:00)
[2021-08-22] MEDS: D5W/SOD CHL 0.45%/KCL 20MEQ 1,000 ML IV SCH (01:42)
[2021-08-22 02:28] LABS: Calcium 6.9 mg/dL (8.5-10.1)
[2021-08-22 02:30] LABS: BUN/Creatinine Ratio 20.5
[2021-08-22] MEDS: SODIUM CHLORIDE 0.9% 1,000 ML IV SCH ×4 (03:10→14:56)
[2021-08-22] MEDS ORDERED: POTASSIUM CHL 20MEQ/100ML 200 ML IV ONE (03:53)
[2021-08-22] MEDS: POTASSIUM CHL 20MEQ/100ML 200 ML IV PRN ×2 (04:06→06:17)
[2021-08-22] MEDS: InsuLIN REG 1unit/0.01ml Soln (100units/ml) SC SCH ×3 (08:38→18:15)
[2021-08-22] MEDS: INSULIN LANTUS (GLARGINE) 1 /0.01ml (100units/ml) SC SCH (08:46)
[2021-08-22 09:00] LABS: BUN/Creatinine Ratio 18.5; Calcium 7.2 mg/dL (8.5-10.1)
[2021-08-22 09:17] LABS: Potassium 2.8 mmol/L (3.5-5.1)
[2021-08-22] MEDS: cefTRIAXone 1GM/50ML D5W 50 ML IV SCH (09:44)
[2021-08-22] MEDS: PANTOPRAZOLE 40 MG/10 ML VIAL INJ IV SCH (09:44)
[2021-08-22] MEDS: POTASSIUM CHL 20 Meq TABLET PO SCH ×3 (09:45→22:00)
[2021-08-22] MEDS: METOPROLOL SUCCINATE XL 50 MG TAB PO SCH (09:45)
[2021-08-22] MEDS ORDERED: INSULIN LANTUS (GLARGINE) 1 /0.01ml (100units/ml) SC SCH (10:00)
[2021-08-22 12:28] LABS: Basophils # (auto) 0.1 10 ^3/uL (0-0.2); Basophils % (auto) 0.9 % (0.0-2.0); Eosinophils # (auto) 0.1 10 ^3/uL (0-0.8); Eosinophils % (auto) 0.5 % (0.0-7.0); Hematocrit 29.6 % (36.0-46.0); Lymphocytes # (auto) 0.5 10 ^3/uL (0.4-5.4); Lymphocytes % (auto) 4.1 % (10.0-50.0); Mean Corpuscular Hemoglobin 30.1 pg (28.0-32.0); Mean Corpuscular Hgb Conc. 33.9 g/dL (32.0-36.0); Mean Corpuscular Volume 88.8 fL (80.0-100.0); Monocytes # (auto) 0.6 10 ^3/uL (0-1.3); Monocytes % (auto) 5.1 % (0.0-12.0); Neutrophils # (auto) 9.8 10 ^3/uL (1.6-8.6); Neutrophils % (auto) 89.4 % (37.0-80.0); Red Blood Cells 3.33 10^6/uL (4.0-5.20); Red Cell Distribution Width 13.9 % (11.8-14.3); White Blood Cell 10.9 10^3/uL (4.4-10.8)
[2021-08-22] MEDS ORDERED: SPIRONOLACTONE 25 MG TAB PO ONE (13:45)
[2021-08-22 14:23] LABS: Urine Bacteria MOD /hpf (None Seen); Urine Blood 1+ /uL (Negative); Urine Mucus FEW (None Seen); Urine WBC 72 /hpf (0 - 5); Urine WBC Clumps PRESENT /hpf (None Seen)
[2021-08-22 16:40] VITALS: BP 137/83
[2021-08-22] MEDS: HEPARIN SODIUM (PORCINE) 5000 UNITS/ML 1ML VIAL SC SCH (21:34)
[2021-08-22 22:00] VITALS: BP 125/72
[2021-08-23] MEDS: SODIUM CHLORIDE 0.9% 1,000 ML IV SCH (03:42)
[2021-08-23 05:30] VITALS: BP 170/81
[2021-08-23] MEDS: ACCU-CHEK COMFORT CURVE STRIP VI SCH ×3 (06:10→18:00)
[2021-08-23] MEDS: INSULIN LANTUS (GLARGINE) 1 /0.01ml (100units/ml) SC SCH (07:00)
[2021-08-23 09:00] VITALS: BP 175/81
[2021-08-23] MEDS: HEPARIN SODIUM (PORCINE) 5000 UNITS/ML 1ML VIAL SC SCH (10:00)
[2021-08-23] MEDS: METOPROLOL SUCCINATE XL 50 MG TAB PO SCH (10:00)
[2021-08-23 10:55] VITALS: BP 160/79
[2021-08-23] MEDS: POTASSIUM CHL 20 Meq TABLET PO SCH (10:56)
[2021-08-23] MEDS: PANTOPRAZOLE 40 MG/10 ML VIAL INJ IV SCH (10:57)
[2021-08-23] MEDS: cefTRIAXone 1GM/50ML D5W 50 ML IV SCH (10:57)
[2021-08-23] MEDS: InsuLIN REG 1unit/0.01ml Soln (100units/ml) SC SCH ×2 (11:30→17:00)
[2021-08-23 13:13] VITALS: BP 169/68
[2021-08-23 15:40] LABS: Calcium 6.6 mg/dL (8.5-10.1); Magnesium 2.5 mg/dL (1.6-2.6); Potassium 3.7 mmol/L (3.5-5.1)
[2021-08-23 15:42] LABS: Phosphorus 2.2 mg/dL (2.5-4.90)
[2021-08-23 17:00] VITALS: BP 163/71
[2021-08-23 22:00] VITALS: BP 148/77
[2021-08-23] MEDS: amLODIPine BESYLATE 5 MG TAB PO SCH (22:00)
[2021-08-24 04:30] VITALS: BP 146/74
[2021-08-24] MEDS: INSULIN LANTUS (GLARGINE) 1 /0.01ml (100units/ml) SC SCH (07:00)
[2021-08-24] MEDS: InsuLIN REG 1unit/0.01ml Soln (100units/ml) SC SCH ×3 (07:00→17:27)
[2021-08-24 09:00] VITALS: BP 171/79
[2021-08-24 09:50] LABS: Calcium 7.3 mg/dL (8.5-10.1); Potassium 3.5 mmol/L (3.5-5.1)
[2021-08-24 09:51] LABS: BUN/Creatinine Ratio 16.3; Phosphorus 2.6 mg/dL (2.5-4.90)
[2021-08-24] MEDS: cefTRIAXone 1GM/50ML D5W 50 ML IV SCH (11:08)
[2021-08-24] MEDS: Glucerna Carbsteady SHAKE Vanilla 8oz PO SCH ×2 (11:08→18:07)
[2021-08-24] MEDS: ENOXAPARIN SOD 30 MG/0.3 ML SYRINGE SC SCH (11:08)
[2021-08-24] MEDS: PANTOPRAZOLE 40 MG/10 ML VIAL INJ IV SCH (11:09)
[2021-08-24] MEDS: hydrALAZINE HCL 25 MG TAB PO SCH ×2 (11:10→22:30)
[2021-08-24] MEDS: MUPIROCIN 2% OINT 15gm or 22gm EACHNOSTRI SCH ×2 (11:21→22:29)
[2021-08-24] MEDS: ACCU-CHEK COMFORT CURVE STRIP VI SCH ×3 (11:31→23:12)
[2021-08-24 13:00] VITALS: BP 119/52
[2021-08-24 17:00] VITALS: BP 160/64
[2021-08-24 22:00] VITALS: BP 149/65
[2021-08-24] MEDS: amLODIPine BESYLATE 5 MG TAB PO SCH (22:32)
[2021-08-25 05:00] VITALS: BP 143/60
[2021-08-25] MEDS: ACCU-CHEK COMFORT CURVE STRIP VI SCH ×2 (06:09→12:22)
[2021-08-25] MEDS: INSULIN LANTUS (GLARGINE) 1 /0.01ml (100units/ml) SC SCH (06:20)
[2021-08-25] MEDS: InsuLIN REG 1unit/0.01ml Soln (100units/ml) SC SCH ×2 (06:20→12:24)
[2021-08-25] MEDS: MUPIROCIN 2% OINT 15gm or 22gm EACHNOSTRI SCH (08:39)
[2021-08-25] MEDS: PANTOPRAZOLE 40 MG/10 ML VIAL INJ IV SCH (08:39)
[2021-08-25] MEDS: cefTRIAXone 1GM/50ML D5W 50 ML IV SCH (08:39)
[2021-08-25] MEDS: ENOXAPARIN SOD 30 MG/0.3 ML SYRINGE SC SCH (08:39)
[2021-08-25] MEDS: hydrALAZINE HCL 25 MG TAB PO SCH (08:40)
[2021-08-25] MEDS: Glucerna Carbsteady SHAKE Vanilla 8oz PO SCH (08:41)
[2021-08-25 09:24] VITALS: BP 149/78
[2021-08-25] MEDS ORDERED: HYDR25TA87 PO (10:55)
[2021-08-25] MEDS ORDERED: AML5T PO (10:55)
[2021-08-25 12:48] VITALS: BP 149/78
[2021-08-25 13:00] VITALS: BP 123/49
== END 2021-08-25 16:10 | disposition home health service (06) | DRG 637 ==
LOC: ER 08:20 → EDUNIT# 08:20 → EDBD 08:20 → OVERFLOW 14:16 → TELE-CENTR 08-22 16:15
PROVIDERS: ADMIT Family Medicine; ATTEND Internal Medicine
PROC: 0HDEXZZ Extraction of Left Lower Arm Skin, External Approach (ICD-10-PCS; principal; 2021-08-21)
PROC: 0HDKXZZ Extraction of Right Lower Leg Skin, External Approach (ICD-10-PCS; 2021-08-21)
PROC: 0HDLXZZ Extraction of Left Lower Leg Skin, External Approach (ICD-10-PCS; 2021-08-21)
PROC: 0HDDXZZ Extraction of Right Lower Arm Skin, External Approach (ICD-10-PCS; 2021-08-21)
DX: E11.10 Type 2 diabetes mellitus with ketoacidosis without coma (principal); E43 Unspecified severe protein-calorie malnutrition; N17.0 Acute kidney failure with tubular necrosis; I21.A1 Myocardial infarction type 2; N18.4 Chronic kidney disease, stage 4 (severe); I13.0 Hypertensive heart and chronic kidney disease with heart failure and stage 1 through stage 4 chronic kidney disease, or unspecified chronic kidney disease; N39.0 Urinary tract infection, site not specified; R29.6 Repeated falls; E87.6 Hypokalemia; E86.0 Dehydration; E11.22 Type 2 diabetes mellitus with diabetic chronic kidney disease; Z20.822 Contact with and (suspected) exposure to COVID-19; E78.5 Hyperlipidemia, unspecified; F41.9 Anxiety disorder, unspecified; K21.9 Gastro-esophageal reflux disease without esophagitis; Z60.2 Problems related to living alone; S51.002A Unspecified open wound of left elbow, initial encounter; S89.92XA Unspecified injury of left lower leg, initial encounter; S89.91XA Unspecified injury of right lower leg, initial encounter; W18.39XA Other fall on same level, initial encounter; I25.2 Old myocardial infarction; I50.9 Heart failure, unspecified; Z82.3 Family history of stroke; Z86.73 Personal history of transient ischemic attack (TIA), and cerebral infarction without residual deficits; Z88.0 Allergy status to penicillin; Z90.49 Acquired absence of other specified parts of digestive tract; Y93.89 Activity, other specified; Y92.098 Other place in other non-institutional residence as the place of occurrence of the external cause; Y99.8 Other external cause status; Z68.23 Body mass index [BMI] 23.0-23.9, adult
CPT/HCPCS: 36415; 36600; 70450; 71045; 73130; 73502; 80048; 80053; 80061; 81001; 82010; 82805; 82962; 83735; 83930; 84100; 84443; 84484; 85025; 87081; 87086; 87426; 93005; 96361; 96365; 96366; 96367; 96372; 97116; 97163; 97530; C9113; G0378; J0696; J1815; J3480

== ENCOUNTER 2021-09-06 12:22 | Inpatient (IN) | payer OTHER ==
[~2021-09-06] VITALS: Ht 162.6 cm; Wt 66.0 kg
[~2021-09-06 12:22] MED LIST changes: -APIX2.5T PO; -ATOR40TA52 PO; -CHOL500023 PO; -INSU100I45 SC; -LEV25T PO; -LINE1TAB5 PO; -NITR-52 PO
[2021-09-06 14:54] LABS: Basophils # (auto) 0.1 10 ^3/uL (0-0.2); Eosinophils # (auto) 0 10 ^3/uL (0-0.8); Eosinophils % (auto) 0.3 % (0.0-7.0); Hematocrit 32.4 % (36.0-46.0); Lymphocytes # (auto) 0.7 10 ^3/uL (0.4-5.4); Lymphocytes % (auto) 9.8 % (10.0-50.0); Mean Corpuscular Hemoglobin 30.6 pg (28.0-32.0); Mean Corpuscular Hgb Conc. 33.9 g/dL (32.0-36.0); Mean Corpuscular Volume 90.3 fL (80.0-100.0); Monocytes # (auto) 0.8 10 ^3/uL (0-1.3); Monocytes % (auto) 10.6 % (0.0-12.0); Neutrophils # (auto) 5.7 10 ^3/uL (1.6-8.6); Neutrophils % (auto) 78.3 % (37.0-80.0); Nucleated Red Blood Cells % 0.1 %; Red Blood Cells 3.59 10^6/uL (4.0-5.20); Red Cell Distribution Width 14.3 % (11.8-14.3); White Blood Cell 7.3 10^3/uL (4.4-10.8)
[2021-09-06 15:10] LABS: Albumin 1.5 g/dL (3.4-5.0); BUN/Creatinine Ratio 14.7; Calcium 7.7 mg/dL (8.5-10.1)
[2021-09-06 15:13] LABS: Bilirubin, Total 0.3 mg/dL (0.2-1.0)
[2021-09-06 15:21] LABS: Potassium 2.7 mmol/L (3.5-5.1)
[2021-09-06] MEDS ORDERED: MORPHINE SULFATE INJECTION 2 MG/ML SYRG IV PRN ×3 (17:15→18:45)
[2021-09-06] MEDS ORDERED: NITROGLYCERIN 0.4 MG SL TAB SL PRN ×2 (17:15→18:45)
[2021-09-06] MEDS ORDERED: POTASSIUM CHL 20MEQ/50ML 50 ML IV SCH (17:15)
[2021-09-06] MEDS: POTASSIUM CHL 20MEQ/50ML 50 ML IV SCH ×4 (17:22→23:00)
[2021-09-06] MEDS ORDERED: NIFEdipine ER 30 MG TAB PO ONE (18:30)
[2021-09-06] MEDS ORDERED: DEXTROSE (50%) 50ML SYRG IV PRN (18:30)
[2021-09-06] MEDS ORDERED: ISOSORBIDE MONONITRATE ER 60 MG TAB PO ONE (18:30)
[2021-09-06] MEDS ORDERED: hydrALAZINE HCL 20 MG/ML VL IV PRN (18:30)
[2021-09-06] MEDS ORDERED: LORazepam 0.5 MG TAB PO PRN (18:45)
[2021-09-06] MEDS ORDERED: DOCUSATE SOD 100 MG CAP PO PRN (18:45)
[2021-09-06] MEDS ORDERED: ACETAMINOPHEN 325 MG TAB PO PRN (18:45)
[2021-09-06] MEDS ORDERED: ALUM & MAG HYDROX-SIMETH LIQ(MAALOX) 30 ML PO PRN (18:45)
[2021-09-06] MEDS: SODIUM CHLORIDE 0.9% 1,000 ML IV SCH (18:45)
[2021-09-06] MEDS ORDERED: METOCLOPRAMIDE HCL 5MG/ml INJ 2ml VIAL IV PRN (18:45)
[2021-09-06] MEDS ORDERED: HYDROcodone-ACET 5/325MG TAB PO PRN (18:45)
[2021-09-06 19:28] LABS: Cholesterol 217 mg/dL (< 200); HDL Cholesterol 67 mg/dL (40-59); LDL Cholesterol 104 mg/dL (< 100); Triglycerides 201 mg/dL (< 150)
[2021-09-06] MEDS ORDERED: FAMOTIDINE (10MG/ML) 2ML VL IV ONE (20:00)
[2021-09-06] MEDS: ASPirin-EC 81 mg tab PO SCH (22:00)
[2021-09-06] MEDS: ENOXAPARIN SOD 40 MG/0.4 ML SYRINGE SC SCH (22:00)
[2021-09-06] MEDS ORDERED: DAPTOmycin 500 MG in SODIUM CHL 0.9% 100 ML IV SCH (22:00)
[2021-09-06] MEDS: hydrALAZINE HCL 25 MG TAB PO SCH (22:00)
[2021-09-06] MEDS: ACCU-CHEK COMFORT CURVE STRIP VI SCH (23:55)
[2021-09-06] MEDS: InsuLIN REG 1unit/0.01ml Soln (100units/ml) SC SCH (23:57)
[2021-09-07 01:17] LABS: Urine Bacteria FEW /hpf (None Seen); Urine Blood Negative /uL (Negative); Urine Specific Gravity 1.016 (1.001-1.035); Urine WBC 13 /hpf (0 - 5)
[2021-09-07 01:29] LABS: Amphetamine Screen, Urine NEGATIVE (NEGATIVE); Barbiturate Scree,Urine NEGATIVE (NEGATIVE); Benzodiazephine Screen, Urine NEGATIVE (NEGATIVE); Cannabinoid Screen, Urine NEGATIVE (NEGATIVE); Cocaine Screen, Urine NEGATIVE (NEGATIVE); Opiate Scree,Urine NEGATIVE (NEGATIVE); Phencyclidine Screen, Urine NEGATIVE (NEGATIVE)
[2021-09-07] MEDS: hydrALAZINE HCL 25 MG TAB PO SCH ×3 (06:00→21:47)
[2021-09-07] MEDS: ACCU-CHEK COMFORT CURVE STRIP VI SCH ×4 (06:21→23:04)
[2021-09-07] MEDS: InsuLIN REG 1unit/0.01ml Soln (100units/ml) SC SCH ×4 (06:22→23:03)
[2021-09-07 07:33] LABS: Basophils # (auto) 0 10 ^3/uL (0-0.2); Basophils % (auto) 0.7 % (0.0-2.0); Eosinophils # (auto) 0 10 ^3/uL (0-0.8); Eosinophils % (auto) 0.7 % (0.0-7.0); Hematocrit 28.3 % (36.0-46.0); Hemoglobin 9.8 g/dL (12.2-16.2); Lymphocytes # (auto) 1.2 10 ^3/uL (0.4-5.4); Lymphocytes % (auto) 17.1 % (10.0-50.0); Mean Corpuscular Hemoglobin 30.9 pg (28.0-32.0); Mean Corpuscular Hgb Conc. 34.5 g/dL (32.0-36.0); Mean Corpuscular Volume 89.4 fL (80.0-100.0); Monocytes # (auto) 0.9 10 ^3/uL (0-1.3); Monocytes % (auto) 12.8 % (0.0-12.0); Neutrophils # (auto) 4.8 10 ^3/uL (1.6-8.6); Neutrophils % (auto) 68.7 % (37.0-80.0); Red Blood Cells 3.16 10^6/uL (4.0-5.20); Red Cell Distribution Width 14.1 % (11.8-14.3); White Blood Cell 6.9 10^3/uL (4.4-10.8)
[2021-09-07 07:54] LABS: Potassium 3.3 mmol/L (3.5-5.1)
[2021-09-07 08:03] LABS: Albumin 1.2 g/dL (3.4-5.0); BUN/Creatinine Ratio 14.8; Bilirubin, Total 0.2 mg/dL (0.2-1.0); Calcium 7.6 mg/dL (8.5-10.1); Magnesium 1.6 mg/dL (1.6-2.6); Phosphorus 3.2 mg/dL (2.5-4.90); Total Protein 4.8 g/dL (6.4-8.2); Uric Acid 4.2 mg/dL (2.6-6.0)
[2021-09-07] MEDS: NIFEdipine ER 30 MG TAB PO SCH (11:00)
[2021-09-07] MEDS: ISOSORBIDE MONONITRATE ER 60 MG TAB PO SCH (11:01)
[2021-09-07] MEDS: ATORVASTATIN 20 MG TAB PO SCH (11:13)
[2021-09-07] MEDS: GEMFIBROZIL 600 MG TAB PO SCH (11:13)
[2021-09-07] MEDS: POTASSIUM CHL 20 Meq TABLET PO SCH (11:13)
[2021-09-07] MEDS: ENOXAPARIN SOD 40 MG/0.4 ML SYRINGE SC SCH (11:13)
[2021-09-07] MEDS: SODIUM CHLORIDE 0.9% 1,000 ML IV SCH (11:26)
[2021-09-07] MEDS ORDERED: SODIUM BICARBONATE 50ML VIAL 75 ML in D5W 5% 1,000 ML IV ONE (12:15)
[2021-09-07] MEDS ORDERED: APIX2.5T PO (15:10)
[2021-09-07] MEDS ORDERED: ATOR40TA52 PO (15:12)
[2021-09-07] MEDS ORDERED: NITR-52 PO (15:13)
[2021-09-07] MEDS ORDERED: CHOL500023 PO (15:15)
[2021-09-07] MEDS ORDERED: INSU100I45 SC (15:15)
[2021-09-07 17:03] VITALS: BP 131/66
[2021-09-07 21:30] VITALS: BP 114/54
[2021-09-07] MEDS: ASPirin-EC 81 mg tab PO SCH (21:47)
[2021-09-07] MEDS ORDERED: ENOXAPARIN SOD 40 MG/0.4 ML SYRINGE SC SCH (22:00)
[2021-09-08 05:00] VITALS: BP 129/61
[2021-09-08] MEDS: InsuLIN REG 1unit/0.01ml Soln (100units/ml) SC SCH ×3 (06:00→17:21)
[2021-09-08] MEDS: ACCU-CHEK COMFORT CURVE STRIP VI SCH ×3 (06:02→17:21)
[2021-09-08] MEDS: hydrALAZINE HCL 25 MG TAB PO SCH ×3 (06:45→22:06)
[2021-09-08] MEDS: LEVOTHYROXINE SODIUM 25 MCG TAB PO SCH (06:45)
[2021-09-08 08:07] LABS: Basophils # (auto) 0.1 10 ^3/uL (0-0.2); Basophils % (auto) 1.2 % (0.0-2.0); Eosinophils # (auto) 0.1 10 ^3/uL (0-0.8); Eosinophils % (auto) 1.4 % (0.0-7.0); Hematocrit 28.7 % (36.0-46.0); Hemoglobin 10.1 g/dL (12.2-16.2); Lymphocytes # (auto) 1.1 10 ^3/uL (0.4-5.4); Lymphocytes % (auto) 17.1 % (10.0-50.0); Mean Corpuscular Hemoglobin 31.1 pg (28.0-32.0); Mean Corpuscular Hgb Conc. 35.1 g/dL (32.0-36.0); Mean Corpuscular Volume 88.5 fL (80.0-100.0); Monocytes # (auto) 0.7 10 ^3/uL (0-1.3); Monocytes % (auto) 11.1 % (0.0-12.0); Neutrophils # (auto) 4.5 10 ^3/uL (1.6-8.6); Neutrophils % (auto) 69.2 % (37.0-80.0); Nucleated Red Blood Cells % 0.1 %; Red Blood Cells 3.24 10^6/uL (4.0-5.20); Red Cell Distribution Width 14.1 % (11.8-14.3); White Blood Cell 6.5 10^3/uL (4.4-10.8)
[2021-09-08 08:42] LABS: Potassium 3.3 mmol/L (3.5-5.1)
[2021-09-08 08:59] LABS: Albumin 1.3 g/dL (3.4-5.0); BUN/Creatinine Ratio 14.6; Bilirubin, Total 0.4 mg/dL (0.2-1.0); Calcium 7.1 mg/dL (8.5-10.1); Magnesium 2.4 mg/dL (1.6-2.6); Phosphorus 2.7 mg/dL (2.5-4.90); Total Protein 4.5 g/dL (6.4-8.2)
[2021-09-08 09:00] VITALS: BP 177/66
[2021-09-08] MEDS ORDERED: ENOXAPARIN SOD 40 MG/0.4 ML SYRINGE SC SCH (10:00)
[2021-09-08] MEDS: FAMOTIDINE (10MG/ML) 2ML VL IV SCH (10:00)
[2021-09-08] MEDS ORDERED: POTASSIUM CHL 20 Meq TABLET PO ONE (10:00)
[2021-09-08] MEDS: ISOSORBIDE MONONITRATE ER 60 MG TAB PO SCH (10:37)
[2021-09-08] MEDS: POTASSIUM CHL 20 Meq TABLET PO SCH (10:38)
[2021-09-08] MEDS: ATORVASTATIN 20 MG TAB PO SCH (10:38)
[2021-09-08] MEDS: GEMFIBROZIL 600 MG TAB PO SCH (10:39)
[2021-09-08] MEDS: NIFEdipine ER 30 MG TAB PO SCH (10:40)
[2021-09-08 13:00] VITALS: BP 125/104
[2021-09-08 16:46] LABS: Protein, Urine 785.4 mg/dL (0.0-11.9)
[2021-09-08 17:00] VITALS: BP 117/49
[2021-09-08] MEDS: DAPTOmycin 500 MG in SODIUM CHL 0.9% 50 ML IV SCH (21:56)
[2021-09-08] MEDS: ASPirin-EC 81 mg tab PO SCH (21:56)
[2021-09-08] MEDS: APIXABAN 2.5 MG TAB PO SCH (21:57)
[2021-09-08 22:00] VITALS: BP 132/56
[2021-09-09] MEDS: InsuLIN REG 1unit/0.01ml Soln (100units/ml) SC SCH ×4 (00:34→18:08)
[2021-09-09 05:00] VITALS: BP 105/54
[2021-09-09] MEDS: hydrALAZINE HCL 25 MG TAB PO SCH ×3 (06:00→22:20)
[2021-09-09] MEDS: ACCU-CHEK COMFORT CURVE STRIP VI SCH ×4 (06:11→18:07)
[2021-09-09] MEDS: LEVOTHYROXINE SODIUM 25 MCG TAB PO SCH (08:34)
[2021-09-09 09:00] VITALS: BP 145/61
[2021-09-09] MEDS: APIXABAN 2.5 MG TAB PO SCH ×2 (09:29→22:20)
[2021-09-09] MEDS: POTASSIUM CHL 20 Meq TABLET PO SCH (09:30)
[2021-09-09] MEDS: GEMFIBROZIL 600 MG TAB PO SCH (09:30)
[2021-09-09] MEDS: ATORVASTATIN 20 MG TAB PO SCH (09:30)
[2021-09-09] MEDS: NIFEdipine ER 30 MG TAB PO SCH (09:32)
[2021-09-09] MEDS: ISOSORBIDE MONONITRATE ER 60 MG TAB PO SCH (09:33)
[2021-09-09 13:00] VITALS: BP 140/59
[2021-09-09 17:00] VITALS: BP 150/60
[2021-09-09 22:00] VITALS: BP 162/75
[2021-09-09] MEDS: ASPirin-EC 81 mg tab PO SCH (22:20)
[2021-09-09 22:58] LABS: BUN/Creatinine Ratio 13.8; Calcium 7.1 mg/dL (8.5-10.1); Potassium 4.1 mmol/L (3.5-5.1)
[2021-09-10 05:00] VITALS: BP 145/74
[2021-09-10] MEDS: ACCU-CHEK COMFORT CURVE STRIP VI SCH ×4 (06:00→17:47)
[2021-09-10] MEDS: hydrALAZINE HCL 25 MG TAB PO SCH ×3 (06:00→22:00)
[2021-09-10] MEDS: InsuLIN REG 1unit/0.01ml Soln (100units/ml) SC SCH ×4 (06:00→17:48)
[2021-09-10] MEDS: LEVOTHYROXINE SODIUM 25 MCG TAB PO SCH (07:01)
[2021-09-10 08:16] LABS: Calcium 7.2 mg/dL (8.5-10.1); Potassium 3.6 mmol/L (3.5-5.1)
[2021-09-10 08:53] VITALS: BP 155/67
[2021-09-10] MEDS: FAMOTIDINE (10MG/ML) 2ML VL IV SCH (09:33)
[2021-09-10] MEDS: ISOSORBIDE MONONITRATE ER 60 MG TAB PO SCH (09:34)
[2021-09-10] MEDS: APIXABAN 2.5 MG TAB PO SCH ×2 (09:34→22:00)
[2021-09-10] MEDS: ATORVASTATIN 20 MG TAB PO SCH (09:34)
[2021-09-10] MEDS: POTASSIUM CHL 20 Meq TABLET PO SCH (09:34)
[2021-09-10] MEDS: NIFEdipine ER 30 MG TAB PO SCH (09:35)
[2021-09-10] MEDS: GEMFIBROZIL 600 MG TAB PO SCH (09:35)
[2021-09-10] MEDS ORDERED: LINE1TAB5 PO (12:40)
[2021-09-10] MEDS ORDERED: INSUINJ37 SC ×2 (12:40)
[2021-09-10] MEDS ORDERED: LEV25T PO (12:42)
[2021-09-10 13:00] VITALS: BP 119/65
[2021-09-10 21:42] VITALS: BP 136/74
[2021-09-10] MEDS: DAPTOmycin 500 MG in SODIUM CHL 0.9% 50 ML IV SCH (22:00)
[2021-09-10] MEDS: ASPirin-EC 81 mg tab PO SCH (22:00)
[2021-09-11] MEDS: InsuLIN REG 1unit/0.01ml Soln (100units/ml) SC SCH ×5 (00:25→23:34)
[2021-09-11] MEDS: ACCU-CHEK COMFORT CURVE STRIP VI SCH ×4 (00:25→17:40)
[2021-09-11] MEDS: hydrALAZINE HCL 25 MG TAB PO SCH ×3 (06:06→22:02)
[2021-09-11] MEDS: LEVOTHYROXINE SODIUM 25 MCG TAB PO SCH (06:07)
[2021-09-11 08:34] VITALS: BP 153/61
[2021-09-11] MEDS: ISOSORBIDE MONONITRATE ER 60 MG TAB PO SCH (09:45)
[2021-09-11] MEDS: APIXABAN 2.5 MG TAB PO SCH ×2 (09:45→22:02)
[2021-09-11] MEDS: GEMFIBROZIL 600 MG TAB PO SCH (09:46)
[2021-09-11] MEDS: ATORVASTATIN 20 MG TAB PO SCH (09:46)
[2021-09-11] MEDS: POTASSIUM CHL 20 Meq TABLET PO SCH (09:46)
[2021-09-11] MEDS: NIFEdipine ER 30 MG TAB PO SCH (09:47)
[2021-09-11 12:16] VITALS: BP 135/55
[2021-09-11 17:14] VITALS: BP 140/45
[2021-09-11 22:00] VITALS: BP 110/57
[2021-09-11] MEDS: ASPirin-EC 81 mg tab PO SCH (22:02)
[2021-09-12 05:00] VITALS: BP 125/65
[2021-09-12] MEDS: hydrALAZINE HCL 25 MG TAB PO SCH ×3 (05:45→21:42)
[2021-09-12] MEDS: InsuLIN REG 1unit/0.01ml Soln (100units/ml) SC SCH ×4 (05:47→23:24)
[2021-09-12] MEDS: ACCU-CHEK COMFORT CURVE STRIP VI SCH ×5 (05:48→23:24)
[2021-09-12] MEDS: LEVOTHYROXINE SODIUM 25 MCG TAB PO SCH (06:58)
[2021-09-12 08:24] LABS: Potassium 3.5 mmol/L (3.5-5.1)
[2021-09-12 08:33] LABS: BUN/Creatinine Ratio 15.9; Calcium 6.8 mg/dL (8.5-10.1)
[2021-09-12 09:00] VITALS: BP 146/69
[2021-09-12] MEDS: ATORVASTATIN 20 MG TAB PO SCH (10:00)
[2021-09-12] MEDS: GEMFIBROZIL 600 MG TAB PO SCH (10:00)
[2021-09-12] MEDS: NIFEdipine ER 30 MG TAB PO SCH (10:00)
[2021-09-12] MEDS: ISOSORBIDE MONONITRATE ER 60 MG TAB PO SCH (10:00)
[2021-09-12] MEDS: APIXABAN 2.5 MG TAB PO SCH ×2 (10:00→21:43)
[2021-09-12 13:00] VITALS: BP 133/67
[2021-09-12 17:00] VITALS: BP 93/51
[2021-09-12] MEDS: ASPirin-EC 81 mg tab PO SCH (21:43)
[2021-09-12 22:00] VITALS: BP 105/52
[2021-09-12] MEDS ORDERED: DAPTOmycin 500 MG in SODIUM CHL 0.9% 50 ML IV SCH (22:00)
[2021-09-13] VITALS (7 sets, daily range): BP systolic 114–132; BP diastolic 51–68
[2021-09-13] MEDS: InsuLIN REG 1unit/0.01ml Soln (100units/ml) SC SCH ×3 (05:44→17:42)
[2021-09-13] MEDS: hydrALAZINE HCL 25 MG TAB PO SCH ×3 (06:04→22:52)
[2021-09-13] MEDS: ACCU-CHEK COMFORT CURVE STRIP VI SCH ×3 (06:04→17:33)
[2021-09-13] MEDS: LEVOTHYROXINE SODIUM 25 MCG TAB PO SCH (06:31)
[2021-09-13] MEDS: ISOSORBIDE MONONITRATE ER 60 MG TAB PO SCH (11:16)
[2021-09-13] MEDS: GEMFIBROZIL 600 MG TAB PO SCH (11:16)
[2021-09-13] MEDS: ATORVASTATIN 20 MG TAB PO SCH (11:16)
[2021-09-13] MEDS: APIXABAN 2.5 MG TAB PO SCH ×2 (11:17→22:52)
[2021-09-13] MEDS: NIFEdipine ER 30 MG TAB PO SCH (11:17)
[2021-09-13] MEDS: ASPirin-EC 81 mg tab PO SCH (22:51)
[2021-09-14] MEDS: InsuLIN REG 1unit/0.01ml Soln (100units/ml) SC SCH ×3 (00:13→12:40)
[2021-09-14] MEDS: ACCU-CHEK COMFORT CURVE STRIP VI SCH ×3 (00:25→12:00)
[2021-09-14 05:00] VITALS: BP 131/64
[2021-09-14] MEDS: LEVOTHYROXINE SODIUM 25 MCG TAB PO SCH (06:38)
[2021-09-14] MEDS: hydrALAZINE HCL 25 MG TAB PO SCH ×2 (06:38→14:00)
[2021-09-14 07:08] LABS: Albumin 1.1 g/dL (3.4-5.0); BUN/Creatinine Ratio 17.3; Basophils # (auto) 0.1 10 ^3/uL (0-0.2); Basophils % (auto) 1.2 % (0.0-2.0); Calcium 7.6 mg/dL (8.5-10.1); Eosinophils # (auto) 0.3 10 ^3/uL (0-0.8); Eosinophils % (auto) 4.4 % (0.0-7.0); Hematocrit 25.7 % (36.0-46.0); Hemoglobin 8.5 g/dL (12.2-16.2); Lymphocytes # (auto) 1.2 10 ^3/uL (0.4-5.4); Lymphocytes % (auto) 19.2 % (10.0-50.0); Mean Corpuscular Hemoglobin 29.9 pg (28.0-32.0); Mean Corpuscular Hgb Conc. 33.2 g/dL (32.0-36.0); Mean Corpuscular Volume 90.2 fL (80.0-100.0); Monocytes # (auto) 0.8 10 ^3/uL (0-1.3); Monocytes % (auto) 12.4 % (0.0-12.0); Neutrophils # (auto) 3.9 10 ^3/uL (1.6-8.6); Neutrophils % (auto) 62.8 % (37.0-80.0); Potassium 3.4 mmol/L (3.5-5.1); Red Blood Cells 2.85 10^6/uL (4.0-5.20); Red Cell Distribution Width 14.1 % (11.8-14.3); White Blood Cell 6.2 10^3/uL (4.4-10.8)
[2021-09-14 07:17] LABS: Bilirubin, Total 0.3 mg/dL (0.2-1.0); Total Protein 3.9 g/dL (6.4-8.2)
[2021-09-14] MEDS: ATORVASTATIN 20 MG TAB PO SCH (09:40)
[2021-09-14] MEDS: ISOSORBIDE MONONITRATE ER 60 MG TAB PO SCH (09:40)
[2021-09-14] MEDS: APIXABAN 2.5 MG TAB PO SCH (09:40)
[2021-09-14] MEDS: GEMFIBROZIL 600 MG TAB PO SCH (09:41)
[2021-09-14] MEDS: NIFEdipine ER 30 MG TAB PO SCH (09:41)
[2021-09-14 13:08] VITALS: BP 132/68
== END 2021-09-14 15:45 | disposition home or self-care (01) | DRG 689 ==
LOC: ER 12:22 → TELE 17:07 → TELE-WESTW 09-07 18:07
PROVIDERS: ADMIT Hospitalist; ATTEND Internal Medicine
DX: N39.0 Urinary tract infection, site not specified (principal); U07.1 COVID-19; I50.33 Acute on chronic diastolic (congestive) heart failure; I13.0 Hypertensive heart and chronic kidney disease with heart failure and stage 1 through stage 4 chronic kidney disease, or unspecified chronic kidney disease; N18.4 Chronic kidney disease, stage 4 (severe); Z16.21 Resistance to vancomycin; N17.9 Acute kidney failure, unspecified; E11.22 Type 2 diabetes mellitus with diabetic chronic kidney disease; E03.9 Hypothyroidism, unspecified; R79.89 Other specified abnormal findings of blood chemistry; E11.65 Type 2 diabetes mellitus with hyperglycemia; K21.9 Gastro-esophageal reflux disease without esophagitis; E87.6 Hypokalemia; E78.5 Hyperlipidemia, unspecified; F41.9 Anxiety disorder, unspecified; B95.2 Enterococcus as the cause of diseases classified elsewhere; R54 Age-related physical debility; Z79.84 Long term (current) use of oral hypoglycemic drugs; Z82.3 Family history of stroke; Z86.73 Personal history of transient ischemic attack (TIA), and cerebral infarction without residual deficits; Z79.4 Long term (current) use of insulin; Z79.82 Long term (current) use of aspirin; Z88.0 Allergy status to penicillin; Z86.69 Personal history of other diseases of the nervous system and sense organs; Z98.890 Other specified postprocedural states
CPT/HCPCS: 36415; 71045; 74176; 80048; 80053; 80061; 80307; 81001; 82550; 82570; 82962; 83735; 83880; 83935; 84100; 84156; 84300; 84439; 84443; 84484; 84550; 85025; 85379; 87040; 87081; 87086; 87426; 93005; 93970; 96365; 96366; 96367; 96372; 96375; 97110; 97116; 97163; 97530; G0378; J1815; J3490

== ENCOUNTER → 2021-09-06 | Outpatient (CLI) | payer OTHER ==
[~2021-09-06] MED LIST changes: +AML5T PO; +APIX2.5T PO; +ATOR40TA52 PO; +CHOL500023 PO; -GLIM4TAB42 PO; -HYDR12.56 PO; +HYDR25TA87 PO; +INSU100I45 SC; +LEV25T PO; +LINE1TAB5 PO; -LISI40TA11 PO; +NITR-52 PO
[2021-09-06 13:14] LABS: Albumin 1.6 g/dL (3.4-5.0); Calcium 7.7 mg/dL (8.5-10.1)
[2021-09-06 13:20] LABS: BUN/Creatinine Ratio 14.5; Bilirubin, Total 0.3 mg/dL (0.2-1.0); Total Protein 5.2 g/dL (6.4-8.2)
[2021-09-06 14:21] LABS: Potassium 2.7 mmol/L (3.5-5.1)
== END | disposition home or self-care (01) ==
LOC: LAB 11:50
PROVIDERS: ATTEND Internal Medicine
DX: E11.42 Type 2 diabetes mellitus with diabetic polyneuropathy (principal); E78.5 Hyperlipidemia, unspecified
CPT/HCPCS: 36415; 80053; 83036

== ENCOUNTER 2021-09-27 15:36 | Emergency (ER) | payer OTHER ==
[~2021-09-27] VITALS: Ht 162.6 cm; Wt 60.8 kg
[~2021-09-27 15:36] MED LIST changes: +APIX2.5T PO; -ASPI1TAB20 PO; -ATOR20TA PO; +ATOR40TA52 PO; +CHOL500023 PO; -CLOP75TA28 PO; -EMPA1TAB3 PO; -GEM600T OR; +INSU100I45 SC; +LEV25T PO; +LINE1TAB5 PO
[2021-09-27] MEDS ORDERED: SODIUM CHLORIDE 0.9% 500 ML IV ONE (16:00)
[2021-09-27 16:54] LABS: Basophils # (auto) 0.1 10 ^3/uL (0-0.2); Basophils % (auto) 0.7 % (0.0-2.0); Eosinophils # (auto) 0 10 ^3/uL (0-0.8); Eosinophils % (auto) 0.5 % (0.0-7.0); Hematocrit 32.2 % (36.0-46.0); Hemoglobin 10.6 g/dL (12.2-16.2); Lymphocytes # (auto) 1.2 10 ^3/uL (0.4-5.4); Lymphocytes % (auto) 11.8 % (10.0-50.0); Mean Corpuscular Hemoglobin 30.2 pg (28.0-32.0); Mean Corpuscular Volume 91.4 fL (80.0-100.0); Monocytes # (auto) 0.4 10 ^3/uL (0-1.3); Monocytes % (auto) 3.7 % (0.0-12.0); Neutrophils # (auto) 8.3 10 ^3/uL (1.6-8.6); Neutrophils % (auto) 83.3 % (37.0-80.0); Nucleated Red Blood Cells % 0.4 %; Red Blood Cells 3.52 10^6/uL (4.0-5.20); Red Cell Distribution Width 14.2 % (11.8-14.3); White Blood Cell 9.9 10^3/uL (4.4-10.8)
[2021-09-27 16:58] LABS: Albumin 1.4 g/dL (3.4-5.0); Calcium 7.7 mg/dL (8.5-10.1); Magnesium 2.5 mg/dL (1.6-2.6); Potassium 4.1 mmol/L (3.5-5.1)
[2021-09-27 17:07] LABS: BUN/Creatinine Ratio 13.2; Bilirubin, Total 0.3 mg/dL (0.2-1.0); Total Protein 5.6 g/dL (6.4-8.2)
[2021-09-28] MEDS ORDERED: metroNIDAZOLE 500 MG TAB PO ONE (10:45)
[2021-09-28] MEDS ORDERED: FLORASTOR (S. BOULARDII) 250 MG CAP PO SCH (10:45)
[2021-09-28 10:47] VITALS: BP 152/55
[2021-09-28] MEDS ORDERED: METR500T PO (10:57)
[2021-09-28] MEDS ORDERED: SACC250C PO (10:57)
== END 2021-09-28 12:26 | disposition home or self-care (01) ==
LOC: ER 15:36
DX: E86.0 Dehydration (principal); R79.1 Abnormal coagulation profile; R53.1 Weakness; E78.5 Hyperlipidemia, unspecified; I11.0 Hypertensive heart disease with heart failure; I50.9 Heart failure, unspecified; Z90.89 Acquired absence of other organs; Z88.0 Allergy status to penicillin; Z79.4 Long term (current) use of insulin; Z20.822 Contact with and (suspected) exposure to COVID-19; Z79.899 Other long term (current) drug therapy
CPT/HCPCS: 36415; 71045; 80053; 82728; 83735; 84484; 85025; 85379; 87426; 93005; 96360; 99285; J7040

== ENCOUNTER 2021-10-01 08:36 | Emergency (ER) | payer OTHER ==
[~2021-10-01] VITALS: Ht 172.7 cm; Wt 63.5 kg
[~2021-10-01 08:36] MED LIST changes: +METR500T PO; +SACC250C PO
[2021-10-01] MEDS ORDERED: NOREPINEPHRINE 8 MG/250ML KIT 250 ML IV SCH (09:00)
[2021-10-01] MEDS ORDERED: SODIUM CHLORIDE 0.9% 1,000 ML IV ONE ×2 (09:00)
[2021-10-01 10:14] LABS: Basophils # (auto) 0 10 ^3/uL (0-0.2); Basophils % (auto) 0.1 % (0.0-2.0); Eosinophils # (auto) 0 10 ^3/uL (0-0.8); Monocytes # (auto) 0.7 10 ^3/uL (0-1.3); Nucleated Red Blood Cells % 0.7 %; White Blood Cell 9.2 10^3/uL (4.4-10.8)
[2021-10-01 10:16] LABS: Eosinophils % (auto) 0.1 % (0.0-7.0); Lymphocytes # (auto) 1.1 10 ^3/uL (0.4-5.4); Lymphocytes % (auto) 12.2 % (10.0-50.0); Mean Corpuscular Hemoglobin 30.2 pg (28.0-32.0); Mean Corpuscular Hgb Conc. 32.6 g/dL (32.0-36.0); Mean Corpuscular Volume 92.5 fL (80.0-100.0); Monocytes % (auto) 7.6 % (0.0-12.0); Neutrophils # (auto) 7.4 10 ^3/uL (1.6-8.6); Red Blood Cells 1.83 10^6/uL (4.0-5.20); Red Cell Distribution Width 13.8 % (11.8-14.3)
[2021-10-01 10:34] LABS: Hemoglobin 5.5 g/dL (12.2-16.2)
[2021-10-01 10:46] LABS: Potassium 4.3 mmol/L (3.5-5.1)
[2021-10-01 10:56] LABS: Albumin 1.2 g/dL (3.4-5.0); Bilirubin, Total 0.4 mg/dL (0.2-1.0)
[2021-10-01 11:22] LABS: INR 1.21 (0.9-1.15); Partial Thromboplastin Time 23.1 sec (23.6-33.0)
[2021-10-01 11:36] VITALS: BP 36/14
== END 2021-10-01 12:05 ==
LOC: ER 08:36 → EDBD 08:36 → ER 12:05
DX: D64.9 Anemia, unspecified (principal); J96.01 Acute respiratory failure with hypoxia; I11.0 Hypertensive heart disease with heart failure; I50.9 Heart failure, unspecified; Z90.89 Acquired absence of other organs; Z79.4 Long term (current) use of insulin; Z79.899 Other long term (current) drug therapy; Z88.0 Allergy status to penicillin
CPT/HCPCS: 36415; 80053; 84484; 85025; 85610; 85730; 86850; 86900; 86901; 93005; 96361; 96365; 99291; J7030